=== PATIENT | female | born 1940 | race Caucasian/White ===

== ENCOUNTER 2017-03-28 03:02 | Inpatient (IN) | payer MEDICARE ==
[2017-03-28] MEDS ORDERED: Ondansetron INJ* 2 MG/ML VIAL IV ONE (03:04)
[2017-03-28] MEDS ORDERED: NS 0.9% 1000 ML* 1,000 ML IV ONE (03:04)
--- NOTE | 2017-03-28 03:35 | ED ---
I, Michael,Sameera, scribed for Richard Ramírez MD on 03/28/17 at 0311 . GI/ HPI - HPI Summary HPI Summary: This 76 y/o female presents to ED via ambulance for acute n/v and dizziness since 0130 AM tonight. Pt is noted to be actively vomiting at time of initial evaluation. Coffee ground emesis noted. Negative melena or abd pain. Pt denies any prior history of bloody vomit. Pt is currently on warfarin. PMHx includes s/ p pacemaker placement, cardiac valvular dz s/p valve replacement, and HLD. - History of Current Complaint Time Seen by Provider: 03/28/17 03:03 Stated Complaint: VOMITING/DIZZINESS Hx Obtained From: Patient, Medical Records Onset/Duration: Started Hours Ago, Atraumatic, Still Present Timing: Constant Location of Pain: None Associated Signs and Symptoms: Positive: Dizziness, Nausea, Vomiting Aggravating Factor(s): Nothing Alleviating Factor(s): Nothing - Additional Pertinent History Primary Care Physician: [id number] - Allergy/Home Medications Allergies/Adverse Reactions: Allergies Allergy/AdvReac Type Severity Reaction Status Date / Time Sulfa Drugs Allergy Intermediate Rash Verified 08/04/15 12:43 Penicillins Allergy Unknown Unknown Verified 08/04/15 12:43 Reaction Details Erythromycin AdvReac Intermediate Rectal Verified 08/04/15 12:43 Irritation Home Medications: Home Medications Furosemide [Lasix] 20 mg PO DAILY 03/28/17 [History Confirmed 03/28/17] PMH/Surg Hx/FS Hx/Imm Hx Endocrine/Hematology History: Denies: Hx Diabetes, Hx Thyroid Disease Cardiovascular History: Reports: Hx Coronary Artery Disease, Hx Hypercholesterolemia - HLD, Hx Pacemaker/ICD - PACER INSERTION 07-27-15, Hx Valvular Heart Disease - MITRAL & AORTIC VALVE, Other Cardiovascular Problems/ Disorders - CAD, VALVULAR HEART DISEASE Denies: Hx Congestive Heart Failure, Hx Hypertension, Hx Peripheral Vascular Disease Respiratory History: Reports: Hx Asthma - DAILY MEDS, Hx Chronic Bronchitis History: Reports: Other Problems/Disorders - CYSTOSCOPY Musculoskeletal History: Denies: Hx Arthritis, Hx Osteoporosis Sensory History: Reports: Hx Cataracts, Hx Contacts or Glasses Denies: Hx Hearing Aid Opthamlomology History: Reports: Hx Cataracts, Hx Contacts or Glasses Neurological History: Reports: Other Neuro Impairments/Disorders - neuropathy Denies: Hx Headaches, Hx Transient Ischemic Attacks (TIA) Psychiatric History: Denies: Hx Anxiety, Hx Depression, Hx Panic Disorder - Cancer History Cancer Type, Location and Year: LEFT BREAST CA - LUMPECTOMY - Surgical History Surgery Procedure, Year, and Place: MITRAL AND AORTIC valve replacement/single bypass;. *MITRAL VALVE MOSAIC PORCINE CONDITIONAL AT 3T (CODI UNDER 4.0W/KG ; 2500 GAUSS/CM OR LESS) AORTIC VALVE DUVALL MAGNA MITRAL EASE PERICARDIAL 1.5T ONLY (SPATIAL GRADIENT 720 GAUSS/CM)*. L breast lumpectomy 2011, tonsilectomy, CARDIAC CATH 07/2013, CYSTOSCOPY, CATARACT SX; Infectious Disease History: Denies: History Other Infectious Disease - Social History Alcohol Use: None Alcohol Amount: ONCE A WEEK Hx Substance Use: No Substance Use Type: Reports: None Hx Tobacco Use: No Smoking Status (MU): Never Smoked Tobacco Review of Systems Negative: Fever Positive: Vomiting, Nausea. Negative: Abdominal Pain All Other Systems Reviewed And Are Negative: Yes Physical Exam Triage Information Reviewed: Yes Vital Signs Reviewed: Yes Appearance: Positive: No Pain Distress, Ill-Appearing Skin: Positive: Warm Head/Face: Positive: Normal Head/Face Inspection Eyes: Positive: ARSENIO ENT: Positive: Hearing grossly normal Neck: Positive: Supple Respiratory/Lung Sounds: Positive: Clear to Auscultation, Breath Sounds Present Cardiovascular: Positive: RRR Abdomen Description: Positive: Soft, Other: - mild epigastric tenderness Bowel Sounds: Positive: Present Musculoskeletal: Positive: Strength/ROM Intact Neurological: Positive: Sensory/Motor Intact, Alert, Oriented to Person Place, Time Psychiatric: Positive: Normal, Affect/Mood Appropriate Diagnostics - Laboratory Result Diagrams: 03/28/17 04:15 03/28/17 04:15 Lab Statement: Any lab studies that have been ordered have been reviewed, and results considered in the medical decision making process. - Radiology CXR Radiology Interpretation Completed By: ED Physician Re-Evaluation - Re-Evaluation First Eval Re-Evaluation Time: 05:02 Comment: in room to discuss plan of care. case d/w hospitalist JAQUELINE Course/Dx - Course Assessment/Plan: This 76 y/o female presents to ED for acute onset of coffee ground emesis since tonight at 0130 AM. Pt is currently on warfarin. Bloodwork is noted with depressed Hgb level of 9.1 and elevated CRP of 24.80. INR of 5.81 is noted. house calls nurse practitioner hospitalist Dr. Betancourt is consulted, and pt is accepted for admission. - Diagnoses Provider Diagnoses: GI bleed, Hyperprothrombinemia - Physician Notifications Discussed Care Of Patient With: Jassi Betancourt Time Discussed With Above Provider: 05:04 Instructed by Provider To: Admit As Inpatient - Critical Care Time Critical Care Time: 30-74 min Discharge - Discharge Plan Condition: Fair Disposition: ADMITTED TO [facility] Referrals: Keyona Figueroa MD [Primary Care Provider] - The documentation as recorded by the Michael liang Soohyun accurately reflects the service I personally performed and the decisions made by me, Richard Ramírez MD.
[2017-03-28 04:30] LABS: Hematocrit 27 % (35-47); Hemoglobin 9.1 g/dl (12.0-16.0); Mean Corpuscular HGB Conc 34 g/dl (31-36); Mean Corpuscular Hemoglobin 31 pg (27-31); Mean Corpuscular Volume 93 fL (80-97); Mean Platelet Volume 8 um3 (7.4-10.4); Red Blood Count 2.93 10^6/ul (4.0-5.4); Red Cell Distribution Width 14 % (10.5-15); White Blood Count 8.2 10^3/ul (3.5-10.8)
[2017-03-28 04:43] LABS: Albumin 3.2 g/dL (3.2-5.2); BUN/Creatinine Ratio 52.4 (8-20); C Reactive Protein 24.8 mg/L (< 5.00); Calcium 8.7 mg/dL (8.6-10.3); EGFR African American 65.4 (>60); EGFR Non-African American 50.8 (>60); Globulin 2.7 g/dL (2-4); Potassium 4.6 mmol/L (3.5-5.0); Total Bilirubin 0.4 mg/dL (0.2-1.0); Total Protein 5.9 g/dL (6.4-8.9)
[2017-03-28] MEDS ORDERED: Pantoprazole IV* 40 MG IV ONE (05:06)
[2017-03-28] MEDS ORDERED: Albuterol 2.5 MG/3 ML NEB.SOL* (0.083%) INH PRN (05:09)
[2017-03-28] MEDS ORDERED: Melatonin (NF) 3 MG TAB PO PRN (05:09)
--- NOTE | 2017-03-28 05:22 | HP ---
H&P (Free Text) History and Physical: PCP: Say Figueroa MD Date/Time of Evaluation: 03/28/2017 0505 CC: N/V HPI: Mrs Melgar is a 76YO female HX bio-prosthetic AVR & MVR, CAD, breast CA & chronic systolic HF who was in her usual state of health 03/27 noting only some mild nausea before bed. She then awoke ~0200 with worse nausea and vomited black material. She then became diaphoretic and "nearly passed out", but denies chest/abdominal pain, SOB, palpitations, F/C, or other issues. She noted some constipation a week ago that has since resolved, but not black/tarry stools. She takes warfarin for a history of AFIB and aspirin for CAD. She denies taking OTC pain medications such as ibuprofen/motrin or naproxen/aleve. PMedHx CAD AFIB bio-prosthetic AVR & MVR HTN HLD chronic systolic HF EF 45-50% HX breast CA asthma peripheral neuropathy Ambulatory Orders Multiple Vitamins W/ Minerals [Multi For Her] 300 mg PO DAILY 08/02/13 Aspirin EC Low Dose* [Ecotrin EC Low Dose 81 MG*] 81 mg PO DAILY 08/26/13 Atorvastatin* [Lipitor*] 10 mg PO DAILY 05/13/14 Calcium Carbonate-Vitamin D [Calcium 600+D] 1 tab PO DAILY 05/13/14 Cholecalciferol TAB* [Vitamin D TAB*] 2,000 unit PO DAILY 05/13/14 Lisinopril TAB* [Prinivil TAB*] 5 mg PO DAILY 05/13/14 Metoprolol Succinate [Toprol Xl] 25 mg PO TID 05/13/14 Ascorbic Acid TAB* [Vitamin C TAB*] 500 mg PO DAILY 07/05/14 Nitroglycerin TAB 0.4 MG* 0.4 mg SL Q5M PRN 07/05/14 Warfarin TAB(*) [Coumadin TAB(*)] 4 mg PO DAILY 07/05/14 Albuterol HFA INHALER* [Ventolin HFA Inhaler*] 2 puff INH Q4HR 11/08/14 Flovent Hfa 2 puff INH BID 11/08/14 Ipratropium Fenton (Nasal) [Ipratropium Fenton] 0.03 % NA DAILY 11/08/14 Furosemide [Lasix] 20 mg PO DAILY 03/28/17 Allergies Sulfa Drugs Allergy (Intermediate, Verified 08/04/15 12:43) Rash Penicillins Allergy (Unknown, Verified 08/04/15 12:43) Unknown Reaction Details Erythromycin Adverse Reaction (Intermediate, Verified 08/04/15 12:43) Rectal Irritation SocHx: denies tobacco, alcohol, & recreational drugs; , lives alone, 2 daughters; retired from secretarial work for [employer]; full code status FamHx: positive for HTN, HLD ROS: as above, otherwise reviewed and all were negative Constitutional: NAD, normally developed, slightly overweight elderly white female vitals: Vital Signs Temp 35.9 C 03/28/17 03:39 Pulse 94 03/28/17 04:46 Resp 14 03/28/17 04:46 BP 75/42 03/28/17 04:47 Pulse Ox 94 03/28/17 04:46 Intake & Output 03/27/17 03/27/17 03/28/17 11:59 23:59 11:59 Weight 72.575 kg Other: Estimated Stool Amount Medium HEENM: atraumatic; sclera/conjunctiva: non-icteric/clear; hearing: clinically intact; oropharynx: clear, mucosa tacky Neck: soft tissue: non-tender; thyroid: normal Pulmonary: clear to auscultation bilaterally, good aeration, no accessory muscle use CV: RR/RR, normal S1S2, no carotid bruit, no jugular venous distention, 2+ B DP/ PT, no edema Abdominal: soft, non-distended, non-tender, no rebound/guarding/rigidity, normoactive bowel sounds, no hepatosplenomegaly or masses, no costovertebral angle tenderness Musculoskeletal: general: grossly intact; gait: stable Integumental: pale, cool Psychiatric orientation: AA&O to PPS affect: calm mood: pleasant eye contact: good content: mostly reliable, but lacking in details (denies HX AFIB, but was noted in cardiology consult from 2014) responses: timely insight: good Testing: Lab Results 03/28/17 03/28/17 03/28/17 Range/Units 04:15 04:15 04:15 WBC 8.2 (3.5-10.8) 10^3/ul RBC 2.93 L (4.0-5.4) 10^6/ul Hgb 9.1 L (12.0-16.0) g/dl Hct 27 L (35-47) % MCV 93 (80-97) fL MCH 31 (27-31) pg MCHC 34 (31-36) g/dl RDW 14 (10.5-15) % Plt Count 150 (150-450) 10^3/ul MPV 8 (7.4-10.4) um3 Neut % (Auto) 77.5 (38-83) % Lymph % (Auto) 14.3 L (25-47) % [place] % (Auto) 6.9 (1-9) % Eos % (Auto) 0.9 (0-6) % Baso % (Auto) 0.4 (0-2) % Absolute Neuts (auto) 6.3 (1.5-7.7) 10^3/ul Absolute Lymphs (auto) 1.2 (1.0-4.8) 10^3/ul Absolute Monos (auto) 0.6 (0-0.8) 10^3/ul Absolute Eos (auto) 0.1 (0-0.6) 10^3/ul Absolute Basos (auto) 0 (0-0.2) 10^3/ul Absolute Nucleated RBC 0 10^3/ul Nucleated RBC % 0 INR (Anticoag Therapy) 5.81 H* (0.89-1.11) Sodium 137 (133-145) mmol/L Potassium 4.6 (3.5-5.0) mmol/L Chloride 106 (101-111) mmol/L Carbon Dioxide 28 (22-32) mmol/L Anion Gap 3 (2-11) mmol/L BUN 55 H (6-24) mg/dL Creatinine 1.05 H (0.51-0.95) mg/dL Est GFR ( Amer) 65.4 (>60) Est GFR (Non-Af Amer) 50.8 (>60) BUN/Creatinine Ratio 52.4 H (8-20) Glucose 162 H (70-100) mg/dL Lactic Acid (0.5-2.0) mmol/L Calcium 8.7 (8.6-10.3) mg/dL Magnesium 2.0 (1.9-2.7) mg/dL Total Bilirubin 0.40 (0.2-1.0) mg/dL AST 18 (13-39) U/L ALT 13 (7-52) U/L Alkaline Phosphatase 76 (34-104) U/L C-Reactive Protein 24.80 H (< 5.00) mg/L Total Protein 5.9 L (6.4-8.9) g/dL Albumin 3.2 (3.2-5.2) g/dL Globulin 2.7 (2-4) g/dL Albumin/Globulin Ratio 1.2 (1-3) Lipase 28 (11.0-82.0) U/L Blood Type Antibody Screen Crossmatch 03/28/17 03/28/17 Range/Units 04:15 04:15 WBC (3.5-10.8) 10^3/ul RBC (4.0-5.4) 10^6/ul Hgb (12.0-16.0) g/dl Hct (35-47) % MCV (80-97) fL MCH (27-31) pg MCHC (31-36) g/dl RDW (10.5-15) % Plt Count (150-450) 10^3/ul MPV (7.4-10.4) um3 Neut % (Auto) (38-83) % Lymph % (Auto) (25-47) % [place] % (Auto) (1-9) % Eos % (Auto) (0-6) % Baso % (Auto) (0-2) % Absolute Neuts (auto) (1.5-7.7) 10^3/ul Absolute Lymphs (auto) (1.0-4.8) 10^3/ul Absolute Monos (auto) (0-0.8) 10^3/ul Absolute Eos (auto) (0-0.6) 10^3/ul Absolute Basos (auto) (0-0.2) 10^3/ul Absolute Nucleated RBC 10^3/ul Nucleated RBC % INR (Anticoag Therapy) (0.89-1.11) Sodium (133-145) mmol/L Potassium (3.5-5.0) mmol/L Chloride (101-111) mmol/L Carbon Dioxide (22-32) mmol/L Anion Gap (2-11) mmol/L BUN (6-24) mg/dL Creatinine (0.51-0.95) mg/dL Est GFR ( Amer) (>60) Est GFR (Non-Af Amer) (>60) BUN/Creatinine Ratio (8-20) Glucose (70-100) mg/dL Lactic Acid 1.7 (0.5-2.0) mmol/L Calcium (8.6-10.3) mg/dL Magnesium (1.9-2.7) mg/dL Total Bilirubin (0.2-1.0) mg/dL AST (13-39) U/L ALT (7-52) U/L Alkaline Phosphatase (34-104) U/L C-Reactive Protein (< 5.00) mg/L Total Protein (6.4-8.9) g/dL Albumin (3.2-5.2) g/dL Globulin (2-4) g/dL Albumin/Globulin Ratio (1-3) Lipase (11.0-82.0) U/L Blood Type O Negative Antibody Screen Pending Crossmatch See Detail ECG, personally reviewed: ventricularly paced rhythm rate 96 CXR, personally reviewed: no acute process ECHO (06/2015): Conclusions: The left ventricular chamber size is normal. Mild concentric left ventricular hypertrophy is observed. The estimated ejection fraction is low normal/mildly reduced at 45-50% appears closer to 50%. The right ventricular chamber size and systolic function are within normal limits. The bio-prosthetic aortic valve appears to be functioning normally. The bioprosthetic mitral valve appears to be functioning normally. Impression: 76F presenting with upper GI hemorrhage & warfarin toxicity DIAGNOSIS & PLAN Primary upper GI hemorrhage on warfarin/aspirin : NPO : ICU monitoring : 5mg vitamin K PO & 4units FFP for warfarin reversal : pantoprazole bolus/GTT : case reviewed w/ S MD [facility] who will arrange consultation this AM : IVFs : type & screen : supplemental oxygen : GI consult in AM : hold aspirin & warfarin : supportive care warfarin toxicity : 5mg vitamin K PO & 4units FFP : hold & trend INR daily, evaluate dosage & restart once therapeutic & bleeding resolved Secondary CAD : hold aspirin 2nd GI bleeding bio-prosthetic AVR & MVR : no acute issues HTN : hold lisinopril & metoprolol given hypotension in ED, monitor HLD : continue atorvastatin chronic systolic HF : continue furosemide PO : EF 45-50% : daily weights : strict I&Os : high likelihood of exacerbation 2nd IVF & possible transfusion needs HX breast CA : no evidence of disease asthma : albuterol nebs PRN : mometasone/formoterol Admission Rational: DVTp: SCDs, no anticoagulation 2nd acute hemorrhage Code Status: full HCP: daughters
[2017-03-28] MEDS ORDERED: Phytonadione Oral Solution* 5 MG/25 ML UDC PO ONE (05:49)
[2017-03-28] MEDS: Pantoprazole IV* 80 MG in NS 0.9% 250 ML* 250 ML IVPB SCH ×2 (06:49→16:01)
[2017-03-28] MEDS: Mometasone/Formoter 200/5 MDI INH SCH ×2 (08:26→20:03)
[2017-03-28] MEDS: Atorvastatin* 10 MG TAB PO SCH (08:38)
[2017-03-28] MEDS ORDERED: Furosemide TAB* 20 MG PO SCH (09:00)
--- NOTE | 2017-03-28 09:38 | RAD ---
Indication: Vomiting. 2 views of the chest including dual energy PA views demonstrates no mediastinal shift. Heart is of normal size and configuration. Pacemaker leads are in place. The patient is status post transsternal thoracotomy. No pleural fluid, pneumonia or pneumothorax is noted. When compared to previous exam of February 19, 2016 no significant change is noted. IMPRESSION: No active cardiopulmonary disease is noted.
[2017-03-28] MEDS ORDERED: Midazolam* 1 MG/ML 5 ML VIAL (5 MG) ONE (14:23)
[2017-03-28] MEDS ORDERED: Meperidine SYRINGE* 50 MG/ML ONE (14:23)
[2017-03-28 15:21] LABS: Hematocrit 27 % (35-47); Hemoglobin 9.1 g/dl (12.0-16.0); Mean Corpuscular HGB Conc 33 g/dl (31-36); Mean Corpuscular Hemoglobin 31 pg (27-31); Mean Corpuscular Volume 94 fL (80-97); Mean Platelet Volume 9 um3 (7.4-10.4); Red Blood Count 2.92 10^6/ul (4.0-5.4); Red Cell Distribution Width 14 % (10.5-15); White Blood Count 5.5 10^3/ul (3.5-10.8)
[2017-03-28] MEDS: NS 0.9% 1000 ML* 1,000 ML IV SCH ×2 (16:01→23:10)
--- NOTE | 2017-03-28 16:02 | CONS ---
CC: Dr. Figueroa* CONSULTATION REPORT: DATE OF CONSULT: 03/28/17 REQUESTING PHYSICIAN: Dr. Huitron. INDICATION: Hematemesis. NARRATIVE: Ms. Melgar is a pleasant 76-year-old female with a history of aortic valve and mitral valve replacement, coronary artery disease, breast cancer, congestive heart failure, and asthma, who presents after feeling nauseated around 2 a.m. this morning, and then vomited very dark coffee ground- like material. She states that she had 2 further episodes of that after. She then came to the emergency room. She has had no further vomiting since coming to the emergency room. She states that her stools have not been black; however , she admits that she really does not look at them. She denies any abdominal pain. She does take an aspirin every day, but no other nonsteroidals. She has never had GI bleeding in the past. She is feeling better now, but was feeling weak beforehand. PAST MEDICAL HISTORY: Please see the HPI. MEDICATIONS: Include: 1. Aspirin. 2. Lipitor. 3. Prinivil. 4. Toprol. 5. Coumadin. 6. Flovent. 7. Lasix. ALLERGIES: To SULFA, PENICILLIN, and ERYTHROMYCIN. FAMILY HISTORY: Hypertension, hyperlipidemia. SOCIAL HISTORY: No tobacco. REVIEW OF SYSTEMS: A 12-systems were reviewed, other than that mentioned in the HPI, are unremarkable. The patient did receive 2 units of FFP and vitamin K already. PHYSICAL EXAM: Temperature is 98.1, blood pressure is 114/53, pulse is 89. General: Well-appearing female, in no apparent distress, lying flat in bed, alert, oriented, pleasant, fluent. HEENT: Mucous membranes are moist without lesions, ulcers, or exudate. Neck is supple. Trachea is midline. Head is normocephalic, atraumatic. No scleral icterus. Conjunctivae are pale. Heart: Regular rate and rhythm. She has both aortic and mitral valve murmurs. Lungs are clear to auscultation. Abdomen: Positive bowel sounds, soft, nontender, nondistended. No hepatosplenomegaly, masses, rebound, or guarding. Skin is warm and dry. LABORATORY DATA: Of note, hemoglobin is 9.1, platelets of 150. INR is 5.81. BUN is 55 creatinine is 1.05. ASSESSMENT AND PLAN: This is a pleasant 76-year-old female with an upper gastrointestinal bleed, likely secondary to peptic ulcer disease from her aspirin, worsened by an elevated INR. She has received FFP and vitamin K. There is an INR pending right now. She is on a proton pump inhibitor drip. I will make arrangements for an EGD today. [id number]/[facility] #: [id number]
[2017-03-28 18:26] LABS: Urine Bacteria Absent (Absent); Urine Bilirubin Negative (Negative); Urine Glucose Negative (Negative); Urine Nitrite Negative (Negative)
--- NOTE | 2017-03-28 18:51 | PN ---
Subjective Date of Service: 03/28/17 Interval History: Feels much better. No more nausea. She never had pain. Ate well today. No new c/o. Objective Active Medications: Acetaminophen (Tylenol Tab*) 650 mg PO Q6H PRN PRN Reason: FEVER/PAIN Albuterol (Ventolin 2.5 Mg/3 Ml Neb.Jigna*) 2.5 mg INH Q2H PRN PRN Reason: SOB/WHEEZING Atorvastatin Calcium (Lipitor*) 10 mg PO DAILY [facility] Last Admin: 03/28/17 08:38 Dose: 10 mg Furosemide (Lasix Tab*) 20 mg PO DAILY [facility] Last Admin: 03/28/17 08:38 Dose: 20 mg Pantoprazole Sodium 80 mg/ (Sodium Chloride) 250 mls @ 25 mls/hr IVPB Q10H [facility] Last Admin: 03/28/17 16:01 Dose: 25 mls/hr Sodium Chloride (Ns 0.9% 1000 Ml*) 1,000 mls @ 125 mls/hr IV PER RATE [facility] Last Admin: 03/28/17 16:01 Dose: 125 mls/hr Melatonin (Melatonin (Nf)) 3 mg PO BEDTIME PRN; Protocol PRN Reason: Sleep Mometasone Furoate/Formoterol Fumar (Dulera 200/5 Mdi*) 2 puff INH BID [facility] Last Admin: 03/28/17 08:26 Dose: 2 puff Vital Signs 03/28/17 03/28/17 03/28/17 05:15 05:30 05:45 Temperature Pulse Rate 95 94 91 Respiratory 20 12 19 Rate Blood Pressure 74/44 77/48 84/45 (mmHg) O2 Sat by Pulse 96 96 98 Oximetry 03/28/17 03/28/17 03/28/17 06:00 06:15 06:21 Temperature 98.7 F Pulse Rate 93 95 Respiratory 12 16 Rate Blood Pressure 84/46 91/54 (mmHg) O2 Sat by Pulse 97 100 Oximetry 03/28/17 03/28/17 03/28/17 06:30 06:34 06:41 Temperature Pulse Rate 90 92 Respiratory 14 16 Rate Blood Pressure 87/68 111/38 (mmHg) O2 Sat by Pulse 98 98 Oximetry 03/28/17 03/28/17 03/28/17 06:45 06:58 06:59 Temperature 98.5 F Pulse Rate 94 89 92 Respiratory 23 20 22 Rate Blood Pressure 104/47 110/48 110/38 (mmHg) O2 Sat by Pulse 94 98 99 Oximetry 03/28/17 03/28/17 03/28/17 07:00 07:15 07:30 Temperature Pulse Rate 94 94 93 Respiratory 18 16 15 Rate Blood Pressure 124/41 112/43 107/45 (mmHg) O2 Sat by Pulse 99 88 95 Oximetry 03/28/17 03/28/17 03/28/17 07:45 08:00 08:15 Temperature 98.5 F Pulse Rate 92 93 91 Respiratory 21 15 22 Rate Blood Pressure 115/48 104/39 108/45 (mmHg) O2 Sat by Pulse 98 98 97 Oximetry 03/28/17 03/28/17 03/28/17 08:27 08:28 08:30 Temperature Pulse Rate 94 86 Respiratory 18 17 Rate Blood Pressure 97/40 (mmHg) O2 Sat by Pulse 99 99 Oximetry 03/28/17 03/28/17 03/28/17 08:45 08:48 09:00 Temperature Pulse Rate 94 91 Respiratory 20 15 19 Rate Blood Pressure 118/44 100/59 (mmHg) O2 Sat by Pulse 98 97 Oximetry 03/28/17 03/28/17 03/28/17 09:30 10:00 10:25 Temperature Pulse Rate 91 93 94 Respiratory 16 12 18 Rate Blood Pressure 102/36 107/48 106/43 (mmHg) O2 Sat by Pulse 96 99 98 Oximetry 03/28/17 03/28/17 03/28/17 11:00 11:31 12:00 Temperature 98.1 F Pulse Rate 87 88 89 Respiratory 15 23 17 Rate Blood Pressure 105/46 126/52 114/53 (mmHg) O2 Sat by Pulse 94 99 97 Oximetry 03/28/17 03/28/17 03/28/17 13:00 14:00 14:47 Temperature Pulse Rate 88 85 97 Respiratory 16 16 19 Rate Blood Pressure 117/57 121/53 132/62 (mmHg) O2 Sat by Pulse 98 96 99 Oximetry 03/28/17 03/28/17 03/28/17 14:50 14:55 15:00 Temperature Pulse Rate 102 94 90 Respiratory 16 12 13 Rate Blood Pressure 116/54 95/38 122/29 (mmHg) O2 Sat by Pulse 98 92 100 Oximetry 03/28/17 03/28/17 03/28/17 15:05 15:15 15:30 Temperature Pulse Rate 91 89 94 Respiratory 13 13 16 Rate Blood Pressure 100/39 88/34 102/56 (mmHg) O2 Sat by Pulse 95 93 97 Oximetry 03/28/17 03/28/17 03/28/17 15:45 16:00 16:06 Temperature 97.7 F Pulse Rate 104 Respiratory 20 Rate Blood Pressure 103/72 (mmHg) O2 Sat by Pulse 98 100 Oximetry 03/28/17 03/28/17 03/28/17 16:07 16:30 17:00 Temperature Pulse Rate 108 101 38 Respiratory 21 23 20 Rate Blood Pressure 113/56 110/60 (mmHg) O2 Sat by Pulse 78 93 82 Oximetry 03/28/17 03/28/17 03/28/17 17:21 18:00 18:07 Temperature Pulse Rate 95 65 32 Respiratory 18 16 19 Rate Blood Pressure 119/49 111/53 (mmHg) O2 Sat by Pulse 100 67 56 Oximetry Appearance: Alert, in a chair. In good spirits. Looks comfortable. Eyes: No Scleral Icterus Neck: NL Appearance and Movements; NL JVP, No Thyroid Enlargement, Masses Respiratory: Symmetrical Chest Expansion and Respiratory Effort, Clear to Auscultation, Clear to Percussion Cardiovascular: NL Sounds; No Murmurs; No JVD, RRR, No Edema, - Abdominal: NL Sounds; No Tenderness; No Distention, No Hepatosplenomegaly, - Extremities: No Edema, No Clubbing, Cyanosis, - Skin: No Rash or Ulcers, No Nodules or Sclerosis, - Neurological: Alert and Oriented x 3, NL Sensation Result Diagrams: 03/28/17 15:10 03/28/17 04:15 Microbiology and Other Data: Microbiology 03/28/17 07:03 Nasal Screen MRSA (PCR)(DEEPA) - Final Nasal Mrsa Negative Assess/Plan/Problems-Billing Assessment: - Patient Problems (1) Peptic disease Current Visit: Yes Status: Acute Code(s): K31.9 - DISEASE OF STOMACH AND DUODENUM, UNSPECIFIED SNOMED Code(s): 330173406 Comment: 3 gastric ulcers seen, look benign, not bleeding. Bx for H. pylori obtained. Continue PPI drip. Hct 27 7/4. CBC 7/5. Resume ASA in 1-2 weeks. (2) Afib Current Visit: No Status: Acute Code(s): I48.91 - UNSPECIFIED ATRIAL FIBRILLATION SNOMED Code(s): 58916682 Comment: INR down to 2.47 after FFP. INR 7/5. Resume warfarin in 1-2 weeks. (3) CAD (coronary artery disease) Current Visit: No Status: Acute Code(s): I25.10 - ATHSCL HEART DISEASE OF [place] CORONARY ARTERY W/O ANG PCTRS SNOMED Code(s): 91137800 Comment: Remote CABG, double valve replacement. LVEF 45-50%. - Continue atorvastatin. (4) HTN (hypertension) Current Visit: No Status: Acute Code(s): I10 - ESSENTIAL (PRIMARY) HYPERTENSION SNOMED Code(s): 67158944 Comment: Hold Lisinopril.
[2017-03-28] MEDS: Acetaminophen TAB* 325 MG PO PRN (20:15)
--- NOTE | 2017-03-29 00:13 | PRO ---
CC: Dr. iFgueroa* DATE OF PROCEDURE: 03/28/17 - ROOM #ICU-02 PROCEDURE: EGD. INDICATION: Hematemesis. REFERRING PHYSICIAN: Dr. Figueroa. MEDICATIONS GIVEN: 25 mg IV Demerol, 3 mg IV Versed. DESCRIPTION OF PROCEDURE: After the EGD procedure including the risks, benefits , and alternatives not limited to perforation, surgery, and/or were explained to Ms. Melgar, written consent was then obtained, IV medication was given, and a bite block was placed between the teeth. An Olympus gastroscope was then inserted into the patient's mouth, advanced down the esophagus, into the stomach, into the distal duodenum. In the esophagus at the GE junction, the Z-line was intact. No erosive esophagitis, stricture, or ring was seen. Scope was advanced through a widely patent GE junction into the body of the stomach. Retroflex view was unremarkable. Forward view did reveal three medium sized gastric ulcers. No bleeding was seen. A biopsy was taken for H. pylori. The scope was advanced through a widely patent pylorus, into the duodenal bulb, into the distal duodenum, both of which were unremarkable. The scope was withdrawn from the patient. She tolerated the procedure well, was returned to the care of the ICU staff. IMPRESSION: 1. Complete upper endoscopy into the distal duodenum with biopsies. 2. Three clean based gastric ulcers, status post biopsy for H. pylori. 3. Likely related to her aspirin and her high INR. 4. I would hold her aspirin and Coumadin for 1 week and she will need a repeat EGD in approximately 8 weeks for now to confirm healing of the ulcer. She will need go home on a b.i.d. PPI until her scope. [id number]/[facility] #: [id number] [facility]
[2017-03-29] MEDS: Pantoprazole IV* 80 MG in NS 0.9% 250 ML* 250 ML IVPB SCH ×2 (01:43→14:49)
[2017-03-29 05:15] LABS: Hematocrit 26 % (35-47); Hemoglobin 8.7 g/dl (12.0-16.0); Mean Corpuscular HGB Conc 33 g/dl (31-36); Mean Corpuscular Hemoglobin 32 pg (27-31); Mean Corpuscular Volume 95 fL (80-97); Mean Platelet Volume 9 um3 (7.4-10.4); Red Blood Count 2.74 10^6/ul (4.0-5.4); Red Cell Distribution Width 14 % (10.5-15); White Blood Count 5.7 10^3/ul (3.5-10.8)
[2017-03-29 05:27] LABS: BUN/Creatinine Ratio 38.9 (8-20); Calcium 7.9 mg/dL (8.6-10.3); EGFR Non-African American 46.7 (>60); Potassium 3.8 mmol/L (3.5-5.0)
--- NOTE | 2017-03-29 07:19 | PN ---
Subjective Date of Service: 03/29/17 Interval History: No nausea, abd pain. No BM yet. No new c/o. Objective Active Medications: Acetaminophen (Tylenol Tab*) 650 mg PO Q6H PRN PRN Reason: FEVER/PAIN Last Admin: 03/28/17 20:15 Dose: 650 mg Albuterol (Ventolin 2.5 Mg/3 Ml Neb.Jigna*) 2.5 mg INH Q2H PRN PRN Reason: SOB/WHEEZING Atorvastatin Calcium (Lipitor*) 10 mg PO DAILY [facility] Last Admin: 03/28/17 08:38 Dose: 10 mg Pantoprazole Sodium 80 mg/ (Sodium Chloride) 250 mls @ 25 mls/hr IVPB Q10H [facility] Last Admin: 03/29/17 01:43 Dose: 25 mls/hr Mometasone Furoate/Formoterol Fumar (Dulera 200/5 Mdi*) 2 puff INH BID [facility] Last Admin: 03/28/17 20:03 Dose: 2 puff Vital Signs 03/28/17 03/28/17 03/28/17 07:30 07:45 08:00 Temperature 98.5 F Pulse Rate 93 92 93 Respiratory 15 21 15 Rate Blood Pressure 107/45 115/48 104/39 (mmHg) O2 Sat by Pulse 95 98 98 Oximetry 03/28/17 03/28/17 03/28/17 08:15 08:27 08:28 Temperature Pulse Rate 91 94 86 Respiratory 22 18 17 Rate Blood Pressure 108/45 (mmHg) O2 Sat by Pulse 97 99 99 Oximetry 03/28/17 03/28/17 03/28/17 08:30 08:45 08:48 Temperature Pulse Rate 94 Respiratory 20 15 Rate Blood Pressure 97/40 118/44 (mmHg) O2 Sat by Pulse 98 Oximetry 03/28/17 03/28/17 03/28/17 09:00 09:30 10:00 Temperature Pulse Rate 91 91 93 Respiratory 19 16 12 Rate Blood Pressure 100/59 102/36 107/48 (mmHg) O2 Sat by Pulse 97 96 99 Oximetry 03/28/17 03/28/17 03/28/17 10:25 11:00 11:31 Temperature Pulse Rate 94 87 88 Respiratory 18 15 23 Rate Blood Pressure 106/43 105/46 126/52 (mmHg) O2 Sat by Pulse 98 94 99 Oximetry 03/28/17 03/28/17 03/28/17 12:00 13:00 14:00 Temperature 98.1 F Pulse Rate 89 88 85 Respiratory 17 16 16 Rate Blood Pressure 114/53 117/57 121/53 (mmHg) O2 Sat by Pulse 97 98 96 Oximetry 03/28/17 03/28/17 03/28/17 14:47 14:50 14:55 Temperature Pulse Rate 97 102 94 Respiratory 19 16 12 Rate Blood Pressure 132/62 116/54 95/38 (mmHg) O2 Sat by Pulse 99 98 92 Oximetry 03/28/17 03/28/17 03/28/17 15:00 15:05 15:15 Temperature Pulse Rate 90 91 89 Respiratory 13 13 13 Rate Blood Pressure 122/29 100/39 88/34 (mmHg) O2 Sat by Pulse 100 95 93 Oximetry 03/28/17 03/28/17 03/28/17 15:30 15:45 16:00 Temperature 97.7 F Pulse Rate 94 104 Respiratory 16 20 Rate Blood Pressure 102/56 103/72 (mmHg) O2 Sat by Pulse 97 98 Oximetry 03/28/17 03/28/17 03/28/17 16:06 16:07 16:30 Temperature Pulse Rate 108 101 Respiratory 21 23 Rate Blood Pressure 113/56 110/60 (mmHg) O2 Sat by Pulse 100 78 93 Oximetry 03/28/17 03/28/17 03/28/17 17:00 17:21 18:00 Temperature Pulse Rate 38 95 65 Respiratory 20 18 16 Rate Blood Pressure 119/49 (mmHg) O2 Sat by Pulse 82 100 67 Oximetry 03/28/17 03/28/17 03/28/17 18:07 19:00 19:15 Temperature Pulse Rate 32 95 95 Respiratory 19 14 13 Rate Blood Pressure 111/53 85/38 90/36 (mmHg) O2 Sat by Pulse 56 96 96 Oximetry 03/28/17 03/28/17 03/28/17 19:55 20:00 21:00 Temperature 97.9 F Pulse Rate 94 94 Respiratory 13 19 Rate Blood Pressure 98/36 83/37 (mmHg) O2 Sat by Pulse 99 96 Oximetry 03/28/17 03/28/17 03/28/17 21:01 21:15 22:00 Temperature Pulse Rate 94 95 92 Respiratory 20 19 14 Rate Blood Pressure 76/36 87/39 78/40 (mmHg) O2 Sat by Pulse 96 97 96 Oximetry 03/28/17 03/28/17 03/28/17 22:06 23:00 23:11 Temperature Pulse Rate 95 91 90 Respiratory 20 25 13 Rate Blood Pressure 97/47 74/38 94/45 (mmHg) O2 Sat by Pulse 92 95 96 Oximetry 03/28/17 03/28/17 03/29/17 23:20 23:30 00:00 Temperature 97.0 F Pulse Rate 87 85 Respiratory 12 11 Rate Blood Pressure (mmHg) O2 Sat by Pulse 95 95 Oximetry 03/29/17 03/29/17 03/29/17 00:01 00:05 01:00 Temperature Pulse Rate 86 85 83 Respiratory 11 12 11 Rate Blood Pressure 78/39 104/43 104/44 (mmHg) O2 Sat by Pulse 92 95 96 Oximetry 03/29/17 03/29/17 03/29/17 02:00 02:03 03:00 Temperature Pulse Rate 86 85 79 Respiratory 18 16 20 Rate Blood Pressure 125/54 116/50 (mmHg) O2 Sat by Pulse 100 98 97 Oximetry 03/29/17 03/29/17 03/29/17 03:49 04:00 05:00 Temperature 97.1 F Pulse Rate 83 87 Respiratory 12 15 Rate Blood Pressure 104/42 117/52 (mmHg) O2 Sat by Pulse 93 99 Oximetry 03/29/17 06:00 Temperature Pulse Rate 82 Respiratory 12 Rate Blood Pressure 101/43 (mmHg) O2 Sat by Pulse 97 Oximetry Oxygen Devices in Use Now: None Appearance: Alert, sl up in ICU bed. In good spirits. Looks comfortable. Eyes: No Scleral Icterus Neck: NL Appearance and Movements; NL JVP, No Thyroid Enlargement, Masses Respiratory: Symmetrical Chest Expansion and Respiratory Effort, Clear to Auscultation, Clear to Percussion Cardiovascular: RRR, No Edema, - - 1/6 systolic murmur L > R Extremities: No Edema, No Clubbing, Cyanosis Skin: No Rash or Ulcers, No Nodules or Sclerosis Neurological: Alert and Oriented x 3, NL Sensation Result Diagrams: 03/30/17 04:45 03/30/17 04:44 Microbiology and Other Data: Microbiology 03/28/17 07:03 Nasal Screen MRSA (PCR)(DEEPA) - Final Nasal Mrsa Negative Assess/Plan/Problems-Billing Assessment: - Patient Problems (1) Peptic disease Current Visit: Yes Status: Acute Code(s): K31.9 - DISEASE OF STOMACH AND DUODENUM, UNSPECIFIED SNOMED Code(s): 442606626 Comment: 3 gastric ulcers seen, look benign, not bleeding. Bx for H. pylori obtained. Continue PPI drip. Hct 25 03/29. CBC /. Resume ASA in 1-2 weeks. (2) Afib Current Visit: No Status: Acute Code(s): I48.91 - UNSPECIFIED ATRIAL FIBRILLATION SNOMED Code(s): 89682150 Comment: INR down to 2.47 after FFP. Resume warfarin in 1-2 weeks. (3) CAD (coronary artery disease) Current Visit: No Status: Acute Code(s): I25.10 - ATHSCL HEART DISEASE OF [place] CORONARY ARTERY W/O ANG PCTRS SNOMED Code(s): 03097552 Comment: Remote CABG, double valve replacement. LVEF 45-50%. - Continue atorvastatin. Hold furosemide 1 day (03/29) as creat sl higher 03/29. (4) HTN (hypertension) Current Visit: No Status: Acute Code(s): I10 - ESSENTIAL (PRIMARY) HYPERTENSION SNOMED Code(s): 07386413 Comment: Hold Lisinopril.
[2017-03-29] MEDS ORDERED: Potassium Chlor TAB* 10 MEQ TAB.ER PO ONE (08:00)
[2017-03-29] MEDS: Atorvastatin* 10 MG TAB PO SCH (08:22)
[2017-03-29] MEDS: Mometasone/Formoter 200/5 MDI INH SCH ×2 (11:46→19:58)
[2017-03-29] MEDS: Omeprazole CAP* 20 MG PO SCH (17:47)
[2017-03-30] MEDS: Acetaminophen TAB* 325 MG PO PRN (00:56)
[2017-03-30 05:11] LABS: Hematocrit 25 % (35-47); Hemoglobin 8.2 g/dl (12.0-16.0); Mean Corpuscular HGB Conc 33 g/dl (31-36); Mean Corpuscular Hemoglobin 31 pg (27-31); Mean Corpuscular Volume 94 fL (80-97); Mean Platelet Volume 9 um3 (7.4-10.4); Red Blood Count 2.61 10^6/ul (4.0-5.4); Red Cell Distribution Width 14 % (10.5-15); White Blood Count 5.1 10^3/ul (3.5-10.8)
[2017-03-30 05:13] LABS: Comments Flag Yes
[2017-03-30 05:24] LABS: BUN/Creatinine Ratio 26.7 (8-20); Calcium 8.2 mg/dL (8.6-10.3); EGFR African American 65.4 (>60); EGFR Non-African American 50.8 (>60); Potassium 4.4 mmol/L (3.5-5.0)
[2017-03-30] MEDS: Atorvastatin* 10 MG TAB PO SCH (08:04)
[2017-03-30] MEDS: Omeprazole CAP* 20 MG PO SCH (08:04)
--- NOTE | 2017-03-30 08:08 | DCNOTE ---
Subjective Date of Service: 03/30/17 Interval History: No BM since admission. Walks easily in the [place], no dizziness. No new c/o, anxious to go home. Objective Active Medications: Acetaminophen (Tylenol Tab*) 650 mg PO Q6H PRN PRN Reason: FEVER/PAIN Last Admin: 03/30/17 00:56 Dose: 650 mg Albuterol (Ventolin 2.5 Mg/3 Ml Neb.Jigna*) 2.5 mg INH Q2H PRN PRN Reason: SOB/WHEEZING Atorvastatin Calcium (Lipitor*) 10 mg PO DAILY [facility] Last Admin: 03/29/17 08:22 Dose: 10 mg Mometasone Furoate/Formoterol Fumar (Dulera 200/5 Mdi*) 2 puff INH BID [facility] Last Admin: 03/29/17 19:58 Dose: 2 puff Omeprazole (Prilosec Cap*) 20 mg PO 0730,1630 [facility] Last Admin: 03/29/17 17:47 Dose: 20 mg Vital Signs 03/29/17 03/29/17 03/29/17 08:00 11:08 15:12 Temperature 98.1 F 97.7 F Pulse Rate 84 96 93 Respiratory 12 16 16 Rate Blood Pressure 115/49 123/46 113/46 (mmHg) O2 Sat by Pulse 97 100 100 Oximetry 03/29/17 03/29/17 03/29/17 20:00 20:03 20:04 Temperature Pulse Rate 16 Respiratory 16 97 Rate Blood Pressure (mmHg) O2 Sat by Pulse 97 97 Oximetry 03/29/17 03/30/17 23:41 03:50 Temperature 98.1 F 97.8 F Pulse Rate 94 90 Respiratory 16 16 Rate Blood Pressure 100/41 94/43 (mmHg) O2 Sat by Pulse 99 99 Oximetry Oxygen Devices in Use Now: None Appearance: Alert, supine in bed. In good spirits. Looks comfortable. Eyes: No Scleral Icterus Abdominal: NL Sounds; No Tenderness; No Distention, No Hepatosplenomegaly, - Extremities: No Edema, No Clubbing, Cyanosis, - Skin: No Rash or Ulcers, No Nodules or Sclerosis, - Neurological: Alert and Oriented x 3, NL Sensation Result Diagrams: 03/30/17 04:45 03/30/17 04:44 Microbiology and Other Data: Microbiology 03/28/17 07:03 Nasal Screen MRSA (PCR)(DEEPA) - Final Nasal Mrsa Negative Assess/Plan/Problems-Billing Assessment: - Patient Problems (1) Peptic disease Current Visit: Yes Status: Acute Code(s): K31.9 - DISEASE OF STOMACH AND DUODENUM, UNSPECIFIED SNOMED Code(s): 614491740 Comment: 3 gastric ulcers seen, look benign, not bleeding. Bx for H. pylori obtained. Continue PPI drip. Hct 25 7/5. CBC 7/6. Resume ASA 04/05/17. (2) Afib Current Visit: No Status: Acute Code(s): I48.91 - UNSPECIFIED ATRIAL FIBRILLATION SNOMED Code(s): 18803471 Comment: INR down to 2.47 after FFP. Resume warfarin 04/05/17. (3) CAD (coronary artery disease) Current Visit: No Status: Acute Code(s): I25.10 - ATHSCL HEART DISEASE OF [place] CORONARY ARTERY W/O ANG PCTRS SNOMED Code(s): 50857106 Comment: Remote CABG, double valve replacement. LVEF 45-50%. - Continue atorvastatin. Resume furosemide at home. (4) HTN (hypertension) Current Visit: No Status: Acute Code(s): I10 - ESSENTIAL (PRIMARY) HYPERTENSION SNOMED Code(s): 96898370 Comment: Hold Lisinopril.
--- NOTE | 2017-03-30 08:13 | PN ---
Progress Note - Progress Note Date of Service: 03/30/17 Note: Time spent on discharge 50 minutes.
[2017-03-30 08:15] VITALS: BP 121/51
[2017-03-30] MEDS: Mometasone/Formoter 200/5 MDI INH SCH (08:24)
--- NOTE | 2017-03-30 12:46 | DS ---
CC: Dr. Figueroa; Dr. Fuentes; Dr. Goodman * DISCHARGE SUMMARY: DATE OF ADMISSION: 03/28/17 DATE OF DISCHARGE: 03/30/17 HOSPITAL COURSE: This 76-year-old woman presented with hematemesis. The history is detailed in the admission note. The patient was admitted to intensive care unit. At the time of admission, her INR was 5.81. Her hematocrit was 27. She received two units of fresh frozen plasma and two units of packed red blood cells. Following the fresh frozen plasma, her INR was 2.47. It was not repeated after that. She received no warfarin during the hospital stay. She underwent endoscopy on 03/28/17. She had three clean based gastric ulcers, biopsy was done for H. pylori. The clinical impression was that the ulcers were due to the aspirin and bleeding was related to her high INR. She was instructed to hold her aspirin and warfarin for a week. She will need to repeat the endoscopy in about 8 weeks to confirm healing of the ulcers. She will be on twice a day omeprazole until her repeat endoscopy. Her lisinopril was not given during the hospital stay nor was her metoprolol I told her to resume her metoprolol at a reduced dose of 25 mg b.i.d. She was taking 25 mg t.i.d. at home. She will continue to hold the lisinopril. Her highest systolic blood pressure through her whole hospital stay was 123 systolic. FINAL DIAGNOSES: 1. Three gastric ulcers with upper GI bleeding. 2. Atrial fibrillation. 3. Coronary artery disease. 4. Hypertension. DISCHARGE MEDICATIONS: 1. Omeprazole 20 mg b.i.d. 2. Warfarin 3 mg at h.s. to start on 04/05/17. 3. Metoprolol succinate 25 mg b.i.d. 4. Multivitamin with minerals daily. 5. Atorvastatin 10 mg daily. 6. Vitamin D 2000 units daily. 7. Calcium carbonate with vitamin D1 daily. 8. Nitroglycerin 0.4 mg every 5 minutes p.r.n. 9. Flovent two puffs b.i.d. 10. Ipratropium 0.03% nasal spray daily. 11. Furosemide 20 mg daily. [id number]/[facility] #: [id number] [facility]
== END 2017-03-30 12:15 | disposition home or self-care (01) | DRG 378 ==
LOC: ED 03:02 → ICU 05:06 → MED 03-29 09:46
PROVIDERS: ADMIT Hospitalist; ATTEND Internal Medicine
PROC: 30233K1 Transfusion of Nonautologous Frozen Plasma into Peripheral Vein, Percutaneous Approach (ICD-10-PCS; principal; 2017-03-28)
PROC: 30233N1 Transfusion of Nonautologous Red Blood Cells into Peripheral Vein, Percutaneous Approach (ICD-10-PCS; 2017-03-28)
PROC: 0DB98ZX Excision of Duodenum, Via Natural or Artificial Opening Endoscopic, Diagnostic (ICD-10-PCS; 2017-03-28)
PROC: 0DB68ZX Excision of Stomach, Via Natural or Artificial Opening Endoscopic, Diagnostic (ICD-10-PCS; 2017-03-28)
DX: K25.4 Chronic or unspecified gastric ulcer with hemorrhage (principal); I50.22 Chronic systolic (congestive) heart failure; I48.91 Unspecified atrial fibrillation; I11.0 Hypertensive heart disease with heart failure; G62.9 Polyneuropathy, unspecified; I25.10 Atherosclerotic heart disease of native coronary artery without angina pectoris; E66.3 Overweight; E78.5 Hyperlipidemia, unspecified; J45.909 Unspecified asthma, uncomplicated; T45.515A Adverse effect of anticoagulants, initial encounter; Z88.0 Allergy status to penicillin; Z95.2 Presence of prosthetic heart valve; Z88.2 Allergy status to sulfonamides; Z85.3 Personal history of malignant neoplasm of breast; Z88.1 Allergy status to other antibiotic agents; Z79.01 Long term (current) use of anticoagulants; Z82.49 Family history of ischemic heart disease and other diseases of the circulatory system; Z68.27 Body mass index [BMI] 27.0-27.9, adult
CPT/HCPCS: 36415; 71020; 80048; 80053; 81003; 81015; 83605; 83690; 83735; 85025; 85610; 86140; 86850; 86900; 86901; 86922; 86927; 87077; 87086; 87641; 93005; 94640; 94760; A9270-GY; J2250; J2405; P9017; P9040

== ENCOUNTER 2017-08-10 09:14 | Day surgery (SDC) | payer MEDICARE ==
[~2017-08-10 09:14] MED LIST: Buffered Lidocaine 0.9% SYRIN* 5 ML/SYR SYRINGE INTRADERM ONE; Sodium Citrate/Citric Acid* 15 ML UDC PO ONE
[2017-08-10] MEDS ORDERED: Buffered Lidocaine 0.9% SYRIN* 5 ML/SYR SYRINGE ONE (09:27)
[2017-08-10] MEDS ORDERED: Sodium Citrate/Citric Acid* 15 ML UDC ONE (09:27)
[2017-08-10] MEDS ORDERED: Propofol* 10 MG/ML 20 ML BTL IV PUSH ONE (10:23)
[2017-08-10] MEDS ORDERED: Lidocaine 2% PF * 5 ML VIAL ONE (10:23)
[2017-08-10] MEDS ORDERED: fentaNYL* 50 MCG/ML 2 ML VIAL (100 MCG VIAL) ONE (10:25)
[2017-08-10] MEDS ORDERED: oxyCODONE/Acetamin 5/325 MG* TAB PO PRN (10:54)
--- NOTE | 2017-08-10 11:59 | OP ---
DATE OF OPERATION: 08/10/2017. DATE OF : 1940. SURGEON: Dr. Kanu Domínguez. ANESTHESIOLOGIST: Dr. Ajay Lerma. ANESTHESIA: General endotracheal anesthesia. PRE-OP DIAGNOSIS: Postmenopausal bleeding, thickened endometrium on ultrasound. POST-OP DIAGNOSIS: ____same, pathology pending OPERATIVE PROCEDURE: ___Dilation, Hysteroscopy, Curettage ESTIMATED BLOOD LOSS: Minimal, less than 20 cc. FINDINGS: Midline small uterus, atrophic-appearing endometrium throughout, atrophic change to the vagina, cervix and perineum, the tissue is easily fissured. Both tubal ostia were visualized. COMPLICATIONS: None. COUNTS: Sponge, lap and needle count were correct times two. CONDITION: The patient was brought to the recovery room awake and in stable condition. DESCRIPTION OF PROCEDURE: The patient was brought to the operating room. When general anesthesia was found to be adequate, the patient was prepped and draped in the usual sterile fashion in the dorsal lithotomy position. Exam under anesthesia was performed with the above findings noted. Small axial uterus, no adnexal masses palpable. A narrow weighted speculum was placed in the vagina. The anterior lip and the cervix was grasp with a single tooth tenaculum and the cervix was gently and easily dilated with the graduated Hewitt dilators. The hysteroscope was introduced. The endometrium appeared atrophic throughout. Both tubal ostia were visualized. The hysteroscope was removed. Curettage was performed. The single tooth tenaculum was removed from the cervix. Excellent hemostasis was noted. All instruments were removed from the vaginal and the patient was brought to the recovery room awake and in stable condition. [id number]/[facility] #: [id number] [facility]
[2017-08-10 12:02] VITALS: BP 143/67
== END 2017-08-10 11:49 | disposition home or self-care (01) ==
LOC: OR 09:14
PROVIDERS: ATTEND Obstetrics & Gynecology
DX: N95.0 Postmenopausal bleeding (principal); D62 Acute posthemorrhagic anemia; I48.0 Paroxysmal atrial fibrillation; I35.9 Nonrheumatic aortic valve disorder, unspecified; I25.810 Atherosclerosis of coronary artery bypass graft(s) without angina pectoris; I50.9 Heart failure, unspecified; Z95.0 Presence of cardiac pacemaker; G25.81 Restless legs syndrome; J45.909 Unspecified asthma, uncomplicated; Z95.2 Presence of prosthetic heart valve; I44.2 Atrioventricular block, complete
CPT/HCPCS: 88305; A9270-GY; J2704; J3010

== ENCOUNTER 2018-09-24 08:10 | Emergency (ER) | payer MEDICARE ==
[2018-09-24 08:32] VITALS: BP 130/70
--- NOTE | 2018-09-24 08:40 | UC ---
General HPI - HPI Summary HPI Summary: 1. "uti". frequent, urgewnt burning with urination since last pm. hx same. no fever or abdominal pain. 2. cough, congestion and brownish sputum since last pm. hx asthma, using inhaler which helps. no cp. - History of Current Complaint Chief Complaint: UCRespiratory Stated Complaint: URINARY, COUGH Time Seen by Provider: 09/24/18 08:25 Hx Obtained From: Patient Hx Last Menstrual Period: n/a Onset/Duration: Gradual Onset Timing: Constant Pain Intensity: 0 Associated Signs & Symptoms: Positive: Cough, Dysuria, SOB. Negative: Abdominal Pain, Chest Pain, Fever, Wheezing - Allergy/Home Medications Allergies/Adverse Reactions: Allergies Allergy/AdvReac Type Severity Reaction Status Date / Time erythromycin base Allergy See Comment Verified 09/24/18 08:27 Penicillins Allergy Unknown Verified 09/24/18 08:27 Reaction Details Sulfa (Sulfonamide Allergy Rash Verified 09/24/18 08:27 Antibiotics) Home Medications: Home Medications Calcium Carbonate [Calcium/C/D] 1 chw PO DAILY 09/24/18 [History Confirmed 09/24] Nitroglycerin TAB 0.4 MG* 0.4 mg SL Q5M PRN 09/24/18 [History Confirmed 09/24/18 ] Omeprazole CAP* [Prilosec CAP* 20 MG] 20 mg PO DAILY 09/24/18 [History Confirmed 09/24/18] PMH/Surg Hx/FS Hx/Imm Hx - Additional Past Medical History Additional PMH: uti's Cardiovascular History: Cardiac Disease, Hypertension Respiratory History: Asthma GI/ History: Gastroesophageal Reflux - Surgical History Surgical History: Yes Surgery Procedure, Year, and Place: MITRAL AND AORTIC valve replacement/single bypass;. *MITRAL VALVE MOSAIC PORCINE CONDITIONAL AT 3T (CODI UNDER 4.0W/KG ; 2500 GAUSS/CM OR LESS) AORTIC VALVE DUVALL MAGNA MITRAL EASE PERICARDIAL 1.5T ONLY (SPATIAL GRADIENT 720 GAUSS/CM)*. L breast lumpectomy 2011, tonsilectomy, CARDIAC CATH 07/2013, CYSTOSCOPY, CATARACT SX; - Family History Known Family History: Positive: Non-Contributory - Social History Alcohol Use: None Alcohol Amount: ONCE A WEEK Substance Use Type: None Smoking Status (MU): Never Smoked Tobacco - Immunization History Most Recent Influenza Vaccination: 2016 Most Recent Tetanus Shot: 2008 Most Recent Pneumonia Vaccination: 2008 Vaccination Up to Date: Yes Review of Systems All Other Systems Reviewed And Are Negative: Yes Constitutional: Negative: Fever Skin: Positive: Negative Eyes: Positive: Negative ENT: Positive: Negative Respiratory: Positive: Shortness Of Breath, Cough Cardiovascular: Negative: Chest Pain Gastrointestinal: Negative: Abdominal Pain, Vomiting, Diarrhea, Nausea Genitourinary: Positive: Dysuria, Frequency, Urgency Motor: Positive: Negative Neurovascular: Positive: Negative Musculoskeletal: Positive: Negative Neurological: Positive: Negative Psychological: Positive: Negative Physical Exam Triage Information Reviewed: Yes Appearance: Well-Appearing Vital Signs: Initial Vital Signs Temp 98.9 F 09/24/18 08:25 Pulse 88 09/24/18 08:25 Resp 15 09/24/18 08:25 BP 130/70 09/24/18 08:25 Pulse Ox 98 09/24/18 08:25 Vital Signs Reviewed: Yes Eyes: Positive: Conjunctiva Clear ENT: Positive: Pharynx normal, TMs normal. Negative: Nasal congestion, Nasal drainage Neck: Positive: Supple, Nontender, No Lymphadenopathy Respiratory: Positive: Lungs clear, No respiratory distress, Decreased breath sounds. Negative: Crackles, Rhonchi, Wheezing Cardiovascular: Positive: RRR, No Murmur Abdomen Description: Positive: Nontender, No Organomegaly, Soft. Negative: CVA Tenderness (R), CVA Tenderness (L), Distended, Guarding Bowel Sounds: Positive: Present Musculoskeletal: Positive: ROM Intact Neurological: Positive: Alert Psychological: Positive: Age Appropriate Behavior Skin Exam: Normal Diagnostics - Laboratory Diagnostic Studies Completed/Ordered: u/a=protein, blood, leukocytes with culture pending. Course/Dx - Differential Dx - Multi-Symptom Differential Diagnoses: Other - no concern for pneumonia or acute abdomen or pyelonephritis. - Diagnoses Provider Diagnosis: Asthma, UTI (urinary tract infection) Discharge - Sign-Out/Discharge Documenting (check all that apply): Patient Departure All imaging exams completed and their final reports reviewed: No Studies - Discharge Plan Condition: Stable Disposition: HOME Prescriptions: predniSONE [Prednisone 20 MG TAB] 40 mg PO DAILY 5 Days #10 tablet Sulfamethox/Trimethoprim DS* [Bactrim DS 800/160 TAB*] 1 tab PO BID 3 Days #6 tab Patient Education Materials: Asthma (ED), Urinary Tract Infection in Women (ED) Referrals: Keyona Figueroa MD [Primary Care Provider] - 5 Days Additional Instructions: The antibiotic may raise your warfarin level thus close follow up with primary care is needed. use rescue inhaler 2 puffs every 6 hours. - Billing Disposition and Condition Condition: STABLE Disposition: Home - Attestation Statements Provider Attestation: I was available for consult. This patient was seen by the BETHANIE. The patient was not presented to, seen by, or examined by me. -Rafal
--- NOTE | 2018-09-26 07:16 | UC ---
- Progress Note Progress Note: + E. Coli in urine on cephalexin await sensitivity no change [facility] 09/26 Course/Dx - Diagnoses Provider Diagnoses: Asthma, UTI (urinary tract infection) Discharge - Sign-Out/Discharge Documenting (check all that apply): Post-Discharge Follow Up All imaging exams completed and their final reports reviewed: No Studies - Discharge Plan Condition: Stable Disposition: HOME Prescriptions: Cephalexin CAP* [Keflex CAP*] 500 mg PO BID 7 Days #14 cap predniSONE [Prednisone 20 MG TAB] 40 mg PO DAILY 5 Days #10 tablet Patient Education Materials: Asthma (ED), Urinary Tract Infection in Women (ED) Referrals: Keyona Figueroa MD [Primary Care Provider] - 5 Days Additional Instructions: The antibiotic may raise your warfarin level thus close follow up with primary care is needed. use rescue inhaler 2 puffs every 6 hours. - Billing Disposition and Condition Condition: STABLE Disposition: Home
== END 2018-09-24 09:11 | disposition home or self-care (01) ==
LOC: UCCORT 08:10
DX: J45.909 Unspecified asthma, uncomplicated (principal); N39.0 Urinary tract infection, site not specified; B96.20 Unspecified Escherichia coli [E. coli] as the cause of diseases classified elsewhere; Z16.29 Resistance to other single specified antibiotic; Z88.0 Allergy status to penicillin; Z88.1 Allergy status to other antibiotic agents; Z88.2 Allergy status to sulfonamides; I10 Essential (primary) hypertension; Z95.2 Presence of prosthetic heart valve
CPT/HCPCS: 81003; 87077; 87086; 87186; 99212; G0463

== ENCOUNTER 2018-12-30 09:40 | Emergency (ER) | payer MEDICARE ==
--- OUTSIDE RECORDS SUMMARY | 2018-12-30 09:54 | XMS REPORT | Continuity of Care Document ---
:1940 External Reference #:[id number] Author Name Jennifer Rdoriguez PA-C Address [address] [place] [address] Care Team Providers Name Role Phone Keyona Figueroa M.D. Primary Care Physician Unavailable Payers Date Identification Numbers Payment Provider Subscriber Policy Number: [id number] [place] [employer] [employer]VS Catie Melgar PayID: [id number] [address] [place] [address] Policy Number: [id number] [facility] Catie Melgar PayID: [id number] [address] [place] [address] Advance Directives Description No Information Available Problems Date Description Provider Status Onset: 06/29/2012 Sensorineural hearing loss Ben Henry MD Active Family History Date Family Member(s) Observation Comments Father Heart Disease Social History Type Date Description Comments Sex Unknown Occupation Retired Tobacco Use Start: Unknown Never Smoked Cigarettes Tobacco Use Start: Unknown End: Former Cigarette Smoker Unknown Tobacco Use Start: Unknown End: current.no Unknown Tobacco Use Start: Unknown End: current.no Unknown Smokeless Tobacco current.no ETOH Use Currently rarely consumes alcohol Recreational Drug Use denies drug use Tobacco Use Start: Unknown Patient has never smoked Smoking Status Reviewed: 02/15/18 Patient has never smoked Allergies, Adverse Reactions, Alerts Date Description Reaction Status Severity Comments 02/06/2007 Penicillin Active 02/06/2007 Sulfa Active 07/01/2009 Erythromycin Active 06/28/2012 Cipro Active Medications Medication Date Status Form Strength Qnty SIG Indications Ordering Provider Fluticasone 05/11/ Active Suspension 50mcg/Act 16gm 2 sprays Ben Propionate 2016 each richard Aleman MD daily Vitamin D / Active 2000Iu daily Miri Moses BAILEY Multivitamins / Active daily Miri 0000 Moses BAILEY Warfarin Sodium / Active Tablets 4mg as Miri, 0000 directed Moses BAILEY Calcium 600+D / Active Tablets 600-400mg Miri High Potency 0000 -Unit Moses BAILEY Atorvastatin / Active Tablets 10mg 1 by Miri Calcium 0000 mouth Moses BAILEY every at bedtime Lisinopril / Active Tablets 5mg 1 by Miri 0000 mouth Moses BAILEY every day Nitroglycerin / Active as needed Miri Moses BAILEY Flovent HFA / Active Figueroa, 0000 Keyona M.D. Furosemide / Active Tablets 20mg 1 by Henry, 0000 mouth Keyona every day M.D. Vitamin B6 / Active Unknown 0000 Metoprolol / Active Tablets 25mg Take One Unknown Tartrate 0000 Tablet By Mouth Twice A Day Omeprazole / Active Capsules DR 20mg Take One Unknown 0000 Capsule By Mouth Every Day Ventolin HFA / Active Aerosol 108(90Bas prn Unknown 0000 e) mcg/Act Qnasl 02/01/ Hx Aerosol 80mcg/Act 1mont 2 sprays Ben 2016 - h into each DevanEloina Elaine 02/15/ nostril 2017 once daily Nasonex 01/31/ Hx Suspension 50mcg/Act 17gm 2 sprays Ben 2017 - both Jojo Henry 02/15/ nostrils 2017 once a day Ciprofloxacin 12/08/ Hx Solution 0.3% 5ml 4 drops Ben HCL 2015 - to right Jojo Henry 01/31/ ear twice 2016 a day for 7 days Atrovent Nasal 07/23/ Hx NS 0.06% 1Mont 2 puffs Ben [place] 2013 - h each Jojo Henry 02/15/ nostril 2017 twice daily Ipratropium 07/23/ Hx Solution 0.06% 1bott 2 sprays Ben [place] 2013 - le each Jojo Henry 01/31/ nostril 2016 twice a day Atrovent 10/25/ Hx Solution 0.06% 1unit 2 sprays Ben 2012 - s in each Jojo Henry, 07/03/ richard BAILEY 2013 twice a day as needed Singulair 01/09/ Hx Tablets 10mg 30tab 1 PO qd 477.8 Ben 2007 - s Jojo Henry, 07/01/ 2008 Clarithromycin 08/01/ Hx Tablets 500mg 28tab 1 tablet Ben 2006 - s by mouth Jojo Henry, 10/11/ twice a 2007 day for 14 days Prednisone 08/01/ Hx Tablets 10mg 30tab 4 Tabs PO Ben 2006 - s Every Day Jojo Henry, 10/11/ X3 D, 2007 Then 3 Tabs PO Every Day X 3D, Then 2 Tab PO Daily X3D, Then 1 Tab PO Daily X3D Ciprofloxacin 06/22/ Hx Tablets 500mg 28tab 1 tablet 473.0 Ben HCL 2006 - s twice a Jojo eHnry, 08/13/ day for 2006 14 days Nasonex 04/06/ Hx Suspension 50mcg/Act 1mont 2 sprays 471.8 Ben 2006 - h each Jojo Henry, 07/01/ richard BAILEY 2008 daily Singulair 04/06/ Hx Tablets 10mg 30tab 1 PO qd 471.8 Ben 2006 - s Jojo Henry, 01/07/ 2007 Levaquin 02/20/ Hx Tablets 500mg 14tab 1 Tablet Ben 2006 - s By Mouth Jojo Henry 04/06/ Daily 2006 Until Finished Cipro 02/15/ Hx Tablets 500mg 20tab Take One Ben 2006 - s Tablet By Jojo Henry 04/06/ Mouth 2006 Twice A Day For 10 Days Lyzine 02/14/ Hx Unknown 2006 - 2008 Sinus Medicine 02/05/ Hx Unknown 2006 - 2006 Multivitamins 02/05/ Hx Unknown 2006 - 2008 Calcium Acetate 02/05/ Hx Unknown 2006 - 2008 Fosamax 02/05/ Hx Unknown 2006 - 2008 Amitriptyline 02/05/ Hx Unknown 2006 - 2007 Enablex 02/05/ Hx Unknown 2006 - 2008 Flovent 14/ Hx Unknown 2006 - 2008 Nasonex 02/05/ Hx Suspension 50McG 17gm 2 puff Unknown Intranasal [place] 2006 - Each 04/06/ Nostril 2007 Daily Chlor-Trimeton /00/ Hx Unknown 2008 Alendronate /00/ Hx Unknown Sodium 2011 Calcium /00/ Hx Unknown 2013 Hysine /00/ Hx Unknown 2011 Nasonex /00/ Hx Unknown 2011 Flovent HFA /00/ Hx Unknown 2011 Fiber Tabs / Hx Unknown 2011 Levofloxacin / Hx Unknown 2012 Chemotherapy 00/ Hx Unknown 2012 Gabapentin // Hx Unknown 2013 Vitamin B6 // Hx Unknown 2013 Evista / Hx Unknown 2013 Flonase / Hx Suspension 50mcg/Act 1unit 2 puffs Miri 0000 - s both side Moses BAILEY 12/08/ once per 2015 day Cetirizine HCL / Hx Tablets 10mg 90tab 1 by Miri 0000 - s mouth Moses BAILEY every day 2015 Furosemide / Hx Tablets 20mg 1 by Miri 0000 - mouth Moses BAILEY every day 2015 Ferrous / Hx Tablets 324(38Fe) 1 by Miri Gluconate 0000 - mg mouth Moses BAILEY 12/08/ twice a 2015 day Alendronate / Hx Tablets 35mg 1 po Miri Sodium 0000 - weekly Moses BAILEY 2016 Metoprolol 00/ Hx Tablets ER 25mg bid Miri, Succinate ER 0000 - 24HR Moses BAILEY 2018 Vitamin C / Hx Chewtabs 500mg Tina Chery MD 2016 Aspirin Low Dose / Hx Tablets 81mg 1 by Miri 0000 - milagro Lopes MD every day 2018 Immunizations Description No Information Available Vital Signs Date Vital Result Comment 12/04/2018 11:19am Weight 165.00 lb Weight 74.844 kg Height 65.98 inches 5'5.98" Height in cm's 167.6 cm BMI (Body Mass Index) 26.6 kg/m2 02/15/2018 1:23pm Weight 162.00 lb Weight 73.483 kg Height 65.98 inches 5'5.98" Height in cm's 167.6 cm BMI (Body Mass Index) 26.2 kg/m2 12/09/2015 1:57pm BP Systolic 136 mmHg BP Diastolic 67 mmHg Heart Rate 75 /min Respiratory Rate 17 /min Weight 160.00 lb Weight 72.576 kg Height 65.98 inches 5'5.98" Height in cm's 167.6 cm BMI (Body Mass Index) 25.8 kg/m2 07/03/2014 1:27pm Respiratory Rate 17 /min Weight 160.00 lb Weight 72.576 kg Height 65.98 inches 5'5.98" Height in cm's 167.6 cm BMI (Body Mass Index) 25.8 kg/m2 04/19/2013 11:18am BP Systolic 133 mmHg BP Diastolic 93 mmHg Heart Rate 76 /min Respiratory Rate 16 /min Weight 160.00 lb Weight 72.576 kg Height 65.98 inches 5'5.98" Height in cm's 167.6 cm BMI (Body Mass Index) 25.8 kg/m2 10/25/2012 10:16am BP Systolic 126 mmHg BP Diastolic 70 mmHg Heart Rate 89 /min Respiratory Rate 16 /min Weight 150.00 lb Weight 68.040 kg Height 65.98 inches 5'5.98" Height in cm's 167.6 cm BMI (Body Mass Index) 24.2 kg/m2 06/28/2012 2:21pm BP Systolic 129 mmHg BP Diastolic 68 mmHg Heart Rate 89 /min Respiratory Rate 16 /min Weight 150.00 lb Weight 68.040 kg Height 65.98 inches 5'6" Height in cm's 167.6 cm BMI (Body Mass Index) 24.2 kg/m2 06/26/2008 9:47am BP Systolic 144 mmHg BP Diastolic 80 mmHg Heart Rate 74 /min Respiratory Rate 16 /min 02/21/2008 1:30pm BP Systolic 128 mmHg BP Diastolic 68 mmHg Heart Rate 81 /min Respiratory Rate 16 /min 01/10/2008 9:10am BP Systolic 131 mmHg BP Diastolic 90 mmHg Heart Rate 86 /min Respiratory Rate 15 /min 10/11/2007 9:23am BP Systolic 136 mmHg BP Diastolic 74 mmHg Heart Rate 75 /min Respiratory Rate 14 /min 09/13/2007 9:46am BP Systolic 147 mmHg BP Diastolic 94 mmHg Heart Rate 83 /min Respiratory Rate 14 /min 02/15/2007 2:57pm BP Systolic 124 mmHg BP Diastolic 72 mmHg Heart Rate 90 /min Respiratory Rate 16 /min Results Description No Information Available Procedures Date Code Description Status 12/04/2018 14207 Removal Wax Impaction Completed 01/31/2017 93588 Tympanometry Completed 01/31/2017 76154 Comprehensive Audiogram Completed 07/03/2014 94016 Tympanometry Completed 07/03/2014 56728 Comprehensive Audiogram Completed 04/09/2013 11732 Tympanometry Completed 04/09/2013 31011 Comprehensive Audiogram Completed 06/28/2012 55515 Tympanometry Completed 06/28/2012 49764 Comprehensive Audiogram Completed 02/04/2008 78085 Prick Test Completed 02/04/2008 26340 Prick Test Completed 08/13/2007 29336 Nasal Endoscopy, Diagnostic Completed 06/22/2007 27963 Fiberoptic Laryngoscopy Completed 02/15/2007 12950 Removal Wax Impaction Completed 02/15/2007 41833 Nasal Endoscopy, Diagnostic Completed Encounters Type Date Location Provider Dx Diagnosis Office Visit 02/15/2018 [place],After Ben Uribe 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 MD Elaine hear loss,uni,r ear w rstrcd hear cntra side H72.91 Unspecified perforation of tympanic membrane, right ear Office Visit 01/31/2017 [place],After Ben Uribe H72.91 Unspecified 10:00a 09/25/07 MD Elaine perforation of tympanic membrane, right ear H90.A31 Mix cndct/snrl hear loss,uni,r ear w rstrcd hear cntra side J30.2 Other seasonal allergic rhinitis Office Visit 12/09/2015 [place],After Ben Uribe H72.91 Unspecified 1:45p 09/25/07 MD Elaine perforation of tympanic membrane, right ear R05 Cough J30.0 Vasomotor rhinitis Office 07/03/2014 [place],After Ben Uribe 384.20 Perforation Of Tympanic Visit 1:30p 09/25/07 MD Elaine Membrane/Unspecified 389.10 Hearing Loss, Sensorineural/Unspecified 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.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, Conductive/Middle Ear 472.0 Rhinitis, Chronic Office 04/19/2013 [place],After Ben Uribe 384.20 Perforation Of Tympanic Visit 11:00a 09/25/07 MD Elaine Membrane/Unspecified Office 10/25/2012 [place],After Ben Uribe 384.20 Perforation Of Tympanic Visit 10:15a 09/25/07 MD Elaine Membrane/Unspecified Office 06/28/2012 [place],After Ben Uribe 384.20 Perforation Of Tympanic Visit 1:30p 09/25/07 MD Elaine Membrane/Unspecified 389.10 Hearing Loss, Sensorineural/Unspecified 389.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, Conductive/Middle Ear Office Visit 07/01/2009 10:00a [place],After 09/25/07 Ben Uribe 477.8 RhinitisElaine MD Perennial, Allergy Office Visit 06/26/2008 9:45a [place],After 09/25/07 Ben Uribe 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Elaine MD Seasonal -Allergic Due To Pollen 473.0 Sinusitis, Chronic Maxillary 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, Chronic Ethmoidal 473.1 Sinusitis, Chronic Frontal Office Visit 02/21/2008 1:30p [place],After 09/25/07 [place], 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 , 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 477.8 Rhinitis, Perennial, Allergy Office Visit 01/10/2008 9:15a [place],After 09/25/07 Ben Uribe 473.0 Sinusitis, MD Elaine Chronic Maxillary 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, Chronic Ethmoidal 473.1 Sinusitis, Chronic Frontal 477.8 Rhinitis, Perennial, Allergy Office Visit 10/11/2007 9:30a [place],After 09/25/07 Ben Uribe 473.0 SinusitisElaine MD Chronic Maxillary 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, Chronic Ethmoidal 473.1 Sinusitis, Chronic Frontal Office Visit 09/13/2007 9:45a [place],After 09/25/07 Ben Uribe 473.0 Sinusitis, MD Elaine Chronic Maxillary 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, Chronic Ethmoidal Office Visit 07/20/2007 11:30a [place],After 09/25/07 Ben Uribe 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, MD Elaine Chronic Ethmoidal 473.0 Sinusitis, Chronic Maxillary Office Visit 06/22/2007 11:15a [place],After 09/25/07 Ben Uribe 473.0 Sinusitis, MD Elaine Chronic Maxillary 784.49 Hoarseness /Other Office Visit 04/06/2007 11:00a [place],After Ben Uribe 471.8 Polyps, 09/25/07 MD Elaine Nasal/Sinus 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
--- OUTSIDE RECORDS SUMMARY | 2018-12-30 09:54 | XMS REPORT | Continuity of Care Document ---
:1940 External Reference #:[id number] Author Name Ben Henry MD Address [address] [place] [address] Care Team Providers Name Role Phone Keyona Figueroa M.D. Primary Care Physician Unavailable Payers Date Identification Numbers Payment Provider Subscriber Policy Number: [id number] [place] [employer] [employer] Catie Melgar PayID: [id number] [address] [place] [address] [address]: [id number] [facility] Catie Melgar PayID: [id number] [address] [place] [address] Advance Directives Description No Information Available Problems [...] Patient has never smoked Smoking Status Reviewed: 12/28/18 Patient has never smoked Allergies, Adverse Reactions, Alerts Date Description Reaction Status Severity Comments 02/06/2007 Penicillin Active 02/06/2007 Sulfa Active 07/01/2009 Erythromycin Active Medications Medication Date Status Form Strength Qnty SIG Indications Ordering Provider Clotrimazole 12/28/ Active Mavis 10mg 50uni 1 by Ben 2018 ts mouth 5 Jojo Henry, times a MD day for 10 days Fluticasone 02/02/ Active Suspension 50mcg/Act 16gm 2 sprays Ben Propionate 2016 each richard Aleman MD daily Vitamin D / Active 2000Iu daily Miri 0000 Moses BAILEY Multivitamins / Active daily Miri 0000 Moses BAILEY Warfarin Sodium / Active Tablets 4mg as Miri 0000 directed Moses BAILEY Calcium 600+D / Active Tablets 600-400mg Miri, High Potency 0000 -Unit Moses BAILEY Atorvastatin / Active Tablets 10mg 1 by Miri Calcium 0000 mouth Moses BAILEY every at bedtime Lisinopril / Active Tablets 5mg 1 by Miri 0000 mouth Moses BAILEY every day Nitroglycerin / Active as needed Miri 0000 Moses BAILEY Flovent HFA / Active Figueroa, 0000 Keyona M.D. Furosemide / Active Tablets 20mg 1 by Henry 0000 mouth Keyona every day M.D. Vitamin [...] sprays Ben 2016 - h into each Jojo Henry 02/15/ nostril 2017 once daily Nasonex 01/31/ Hx Suspension 50mcg/Act 17gm 2 sprays Ben 2016 - both Jojo Henry 02/15/ nostrils 2017 once a day Ciprofloxacin 12/08/ Hx Solution 0.3% 5ml 4 drops Ben HCL 2015 - to right Jojo Henry 01/31/ ear twice 2016 a day for 7 days Atrovent Nasal 07/23/ Hx NS 0.06% 1Mont 2 puffs Ben [place] 2013 - h each Jojo Henry 02/15/ nostril 2017 twice daily Ipratropium 07/23/ Hx Solution 0.06% 1bott 2 sprays Ben [place] 2014 - le each Jojo Henry, 01/31/ nostril 2016 twice a day Atrovent 10/25/ Hx Solution 0.06% 1unit 2 sprays Ben 2012 - s in each Jojo Henry, 07/03/ nostril 2013 twice a day as needed Singulair 01/09/ Hx Tablets 10mg 30tab 1 PO qd 477.8 Ben 2007 - s Jojo Henry, 07/01/ 2008 Clarithromycin 08/01/ Hx Tablets 500mg 28tab 1 tablet Ben 2006 - s by mouth Jojo Henry, 10/11/ twice a 2007 day for 14 days Prednisone 08/01/ Hx Tablets 10mg 30tab 4 Tabs PO Ben 2007 - s Every Day Jojo Henry 10/11/ X3 D, 2007 Then 3 Tabs PO Every Day X 3D, Then 2 Tab PO Daily X3D, Then 1 Tab PO Daily X3D Ciprofloxacin 06/22/ Hx Tablets 500mg 28tab 1 tablet 473.0 Ben HCL 2006 - s twice a Jojo Henry, 08/13/ day for 2006 14 days Nasonex 04/06/ Hx Suspension 50mcg/Act 1mont 2 sprays 471.8 Ben 2006 - h each Jojo Henry, 07/01/ nostril 2008 daily Singulair 04/06/ Hx Tablets 10mg 30tab 1 PO qd 471.8 Ben 2006 - s Jojo Henry 01/07/ 2007 Levaquin 02/20/ Hx Tablets 500mg 14tab 1 Tablet Ben 2006 - s By Mouth Jojo Henry, 04/06/ Daily 2006 Until Finished Cipro 02/15/ Hx Tablets 500mg 20tab Take One Ben 2006 - s Tablet By Jjoo Henry 04/06/ Mouth 2006 Twice A Day For 10 Days Lyzine 02/14/ Hx Unknown 2006 - 2008 Sinus Medicine 02/05/ Hx Unknown 2006 - 2006 Multivitamins 02/05/ Hx Unknown 2006 - 2008 Calcium Acetate 02/05/ Hx Unknown 2006 - 2008 Fosamax 02/05/ Hx Unknown 2006 - 2008 Amitriptyline 02/05/ Hx Unknown 2006 - 2007 Enablex 02/05/ Hx Unknown 2006 Flovent 02/05/ Hx Unknown 2006 Nasonex 02/05/ Hx Suspension 50McG 17gm 2 puff Unknown Intranasal [place] 2006 - Each 04/06/ Nostril 2007 Daily Chlor-Trimeton // Hx Unknown 2008 Alendronate / Hx Unknown Sodium 2011 Calcium /00/ Hx Unknown 2013 Hysine /00/ Hx Unknown 2011 Nasonex /00/ Hx Unknown 2011 Flovent HFA / Hx Unknown 2011 Fiber Tabs // Hx Unknown 2011 Levofloxacin /00/ Hx Unknown 2012 Chemotherapy // Hx Unknown 2012 Gabapentin // Hx Unknown 2013 Vitamin B6 /00/ Hx Unknown 2013 Evista /00/ Hx Unknown 2013 Flonase / Hx Suspension 50mcg/Act 1unit 2 puffs Miri 0000 - s both side Moses BAILEY 12/08/ once per 2015 day Cetirizine HCL / Hx Tablets 10mg 90tab 1 by Miri 0000 - s mouth Moses BAILEY every day 2015 Furosemide / Hx Tablets 20mg 1 by Miri 0000 - milagro Lopes MD every day 2016 Ferrous / Hx Tablets 324(38Fe) 1 by Miri Gluconate 0000 - mg mouth Moses BAILEY 12/08/ twice a 2015 day Alendronate / Hx Tablets 35mg 1 po Miri Sodium 0000 - weekly Moses BAILEY 2016 Metoprolol / Hx Tablets ER 25mg bid Miri, Succinate ER 0000 - 24HR Moses BAILEY 2018 Vitamin C / Hx Chewtabs 500mg Tina Chery - Moses BAILEY 2016 Aspirin Low Dose / Hx Tablets 81mg 1 by Tina Chery MD day 2018 Immunizations Description No Information Available Vital Signs Date Vital Result Comment 12/28/2018 11:03am Weight 165.00 lb Weight 74.844 kg Height 65.98 inches 5'5.98" Height in cm's 167.6 cm BMI (Body Mass Index) 26.6 kg/m2 12/04/2018 11:19am Weight 165.00 lb Weight 74.844 [...] Information Available Procedures Date Code Description Status 12/28/2018 54443 Fiberoptic Laryngoscopy Completed 12/04/2018 57155 Removal Wax Impaction Completed 01/31/2017 11925 Tympanometry Completed 01/31/2017 25087 Comprehensive Audiogram Completed 07/03/2014 16814 Tympanometry Completed 07/03/2014 82427 Comprehensive Audiogram Completed 04/09/2013 81617 Tympanometry Completed 04/09/2013 37025 Comprehensive Audiogram Completed 06/28/2012 60323 Tympanometry Completed 06/28/2012 18476 Comprehensive Audiogram Completed 02/04/2008 28107 Prick Test Completed 02/04/2008 51522 Prick Test Completed 08/13/2007 20892 Nasal Endoscopy, Diagnostic Completed 06/22/2007 04263 Fiberoptic Laryngoscopy Completed 02/15/2007 90391 Removal Wax Impaction Completed 02/15/2007 37395 Nasal Endoscopy, Diagnostic Completed Encounters Type Date Location Provider Dx Diagnosis Office Visit 12/28/2018 [place],After Ben Uribe B37.0 Candidal stomatitis 11:00a 09/25/07 MD Elaine R49.0 Dysphonia H72.91 Unspecified perforation of tympanic membrane, right ear Office Visit 02/15/2018 [place],After Ben Uribe 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, Conductive/Middle Ear 472.0 Rhinitis, Chronic Office 04/19/2013 [place],After Ben Uribe 384.20 Perforation Of Tympanic Visit 11:00a 09/25/07 MD Elaine Membrane/Unspecified Office 10/25/2012 [place],After Ben Uribe 384.20 Perforation Of Tympanic Visit 10:15a 09/25/07 MD Elaine Membrane/Unspecified Office 06/28/2012 [place],After Ben Uribe 384.20 Perforation Of Tympanic Visit 1:30p 09/25/07 MD Elaine Membrane/Unspecified 389.10 Hearing Loss, Sensorineural/Unspecified 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.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, Conductive/Middle Ear Office Visit 07/01/2009 10:00a [place],After 09/25/07 Ben Uribe 477.8 RhinitisElaine MD Perennial, Allergy Office Visit 06/26/2008 9:45a [place],After 09/25/07 Ben Uribe 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Elaine MD Seasonal -Allergic Due To Pollen 473.0 Sinusitis, Chronic Maxillary 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, Chronic Ethmoidal 473.1 Sinusitis, Chronic Frontal Office Visit 02/21/2008 1:30p [place],After 09/25/07 Alejandro Sebastian7.0 Rhinitis , 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 477.8 Rhinitis, Perennial, Allergy Office Visit 01/10/2008 9:15a [place],After 09/25/07 Ben Uribe 473.0 Sinusitis, MD Elaine Chronic Maxillary 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, Chronic Ethmoidal 473.1 Sinusitis, Chronic Frontal 477.8 Rhinitis, Perennial, Allergy Office Visit 10/11/2007 9:30a [place],After 09/25/07 Ben Uribe 473.0 Sinusitis, MD Elaine Chronic Maxillary 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, Chronic Ethmoidal 473.1 Sinusitis, Chronic Frontal Office Visit 09/13/2007 9:45a [place],After 09/25/07 Ben Uribe 473.0 Sinusitis, MD Elaine Chronic Maxillary 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, Chronic Ethmoidal Office Visit 07/20/2007 11:30a [place],After 09/25/07 Ben Uribe 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, MD Elaine Chronic Ethmoidal 473.0 Sinusitis, Chronic Maxillary Office Visit 06/22/2007 11:15a [place],After 09/25/07 Ben Uribe 473.0 Sinusitis, MD Elaine Chronic Maxillary 784.49 Hoarseness /Other Office Visit 04/06/2007 11:00a [place],After Ben Uribe 471.8 Polyps, 09/25/07 MD Elaine Nasal/Sinus 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
[2018-12-30 11:30] VITALS: BP 125/46
--- NOTE | 2018-12-30 12:04 | UC ---
Respiratory Complaint HPI - HPI Summary HPI Summary: cough for a week. pt out of breath with walking. Pt states cough is productive. afebrile. she has a lot of fatigue. - History of Current Complaint Chief Complaint: UCRespiratory Stated Complaint: COUGH,CONGESTION Time Seen by Provider: 12/30/18 11:52 Hx Obtained From: Patient Hx Last Menstrual Period: n/a ?: No Onset/Duration: Sudden Onset, Lasting Days - 7 Timing: Constant Severity Initially: Mild Severity Currently: Mild Pain Intensity: 0 Character: Cough: Productive Aggravating Factors: Exertion, Deep Breaths, Recumbent Position Alleviating Factors: Nothing Associated Signs And Symptoms: Positive: Dyspnea, Edema - Allergies/Home Medications Allergies/Adverse Reactions: Allergies Allergy/AdvReac Type Severity Reaction Status Date / Time erythromycin base Allergy See Comment Verified 12/30/18 11:30 Penicillins Allergy Unknown Verified 12/30/18 11:30 Reaction Details Sulfa (Sulfonamide Allergy Rash Verified 12/30/18 11:30 Antibiotics) Home Medications: Home Medications Fluticasone NASAL SPRAY 50MCG* [Flonase NASAL SPRAY 50MCG*] 1 spray INH DAILY PRN 12/30/18 [History Confirmed 12/30/18] PMH/Surg Hx/FS Hx/Imm Hx Previously Healthy: Yes - Surgical History Surgical History: Yes Surgery Procedure, Year, and Place: MITRAL AND AORTIC valve replacement/single bypass;. *MITRAL VALVE MOSAIC PORCINE CONDITIONAL AT 3T (CODI UNDER 4.0W/KG ; 2500 GAUSS/CM OR LESS) AORTIC VALVE DUVALL MAGNA MITRAL EASE PERICARDIAL 1.5T ONLY (SPATIAL GRADIENT 720 GAUSS/CM)*. L breast lumpectomy 2011, tonsilectomy, CARDIAC CATH 07/2013, CYSTOSCOPY, CATARACT SX; - Family History Known Family History: Positive: Non-Contributory - Social History Alcohol Use: None Alcohol Amount: ONCE A WEEK Substance Use Type: None Smoking Status (MU): Never Smoked Tobacco - Immunization History Most Recent Influenza Vaccination: 2015 Most Recent Tetanus Shot: 2007 Most Recent Pneumonia Vaccination: 2008 Vaccination Up to Date: Yes Review of Systems All Other Systems Reviewed And Are Negative: Yes Constitutional: Positive: Fatigue Skin: Positive: Negative Eyes: Positive: Negative ENT: Positive: Negative Respiratory: Positive: Shortness Of Breath, Cough Cardiovascular: Positive: Negative Gastrointestinal: Positive: Negative Genitourinary: Positive: Negative Motor: Positive: Negative Neurovascular: Positive: Negative Musculoskeletal: Positive: Negative Neurological: Positive: Negative Psychological: Positive: Negative Is Patient Immunocompromised?: No Physical Exam Triage Information Reviewed: Yes Appearance: Well-Appearing, Well-Nourished, Ill-Appearing Vital Signs: Initial Vital Signs Temp 97.7 F 12/30/18 11:25 Pulse 88 12/30/18 11:25 Resp 16 12/30/18 11:25 BP 125/46 12/30/18 11:25 Pulse Ox 99 12/30/18 11:25 Vital Signs Reviewed: Yes Eye Exam: Normal ENT: Positive: Pharynx normal, TMs normal Dental Exam: Normal Neck exam: Normal Neck: Positive: Supple, Nontender, No Lymphadenopathy Respiratory: Positive: Chest non-tender, Lungs clear, Normal breath sounds, No respiratory distress - mild, Crackles, Rhonchi, Wheezing, Inspiration Cardiovascular Exam: Normal Cardiovascular: Positive: RRR, No Murmur, Pulses Normal Abdomen Description: Positive: Nontender, No Organomegaly, Soft Musculoskeletal Exam: Normal Neurological Exam: Normal Psychological Exam: Normal Skin Exam: Normal Respiratory Course/Dx - Course Course Of Treatment: hx obtained, exam performed ,meds reviewed, chest xray obtained. - Differential Dx/Diagnosis Differential Diagnosis/HQI/PQRI: Bronchitis, CHF, Pulmonary Edema, Pulmonary Embolism Provider Diagnosis: Pleural effusion, SOB (shortness of breath) Discharge - Sign-Out/Discharge Documenting (check all that apply): Patient Departure All imaging exams completed and their final reports reviewed: No Studies - Discharge Plan Condition: Stable Disposition: HOME Prescriptions: DOXYcycline CAP(*) [DOXYcycline 100MG CAP(*)] 100 mg PO BID #14 cap Patient Education Materials: Pleural Effusion (ED) Referrals: Keyona Figueroa MD [Primary Care Provider] - Additional Instructions: 1. Take 40 mg of lasix today. 2. Restart your lasix daily as prescribed. 20 mg in the morning. 3. Restrict your fluid intake for the next 3 days, to 1000 ml daily 4. Take the anitbiotic as prescribed. 5. I recommend follow up at your doctors office this week, call tomorrow your xray report is attached for your doctors viewing 6. If you develop any severe respiratory difficulty or increased shortness of breath, please follow up in ER. - Billing Disposition and Condition Condition: STABLE Disposition: Home - Attestation Statements Provider Attestation: Per institutional requirements, I have reviewed the chart, however, I was not consulted specifically or made aware of this patient by the midlevel provider. I did not personally evaluate, interact with , or disposition this patient.
[2018-12-30] MEDS ORDERED: Furosemide TAB* 40 MG PO ONE ×2 (12:46→12:48)
--- NOTE | 2018-12-31 15:04 | UC ---
- Progress Note Progress Note: Radiologist reading of chest x-ray from December 30, 2018 comes back as small pleural effusions and/or dependent consolidation. The provider report from the same date there is no interpretation of the chest x -ray however the patient did diagnose the patient with pleural effusions and is treating her for those so therefore there is no discrepancy. Course/Dx - Diagnoses Provider Diagnoses: Pleural effusion, SOB (shortness of breath) Discharge - Sign-Out/Discharge Documenting (check all that apply): Patient Departure All imaging exams completed and their final reports reviewed: Yes - Discharge Plan Condition: Stable Disposition: HOME Prescriptions: DOXYcycline CAP(*) [DOXYcycline 100MG CAP(*)] 100 mg PO BID #14 cap Patient Education Materials: Pleural Effusion (ED) Referrals: Keyona Figueroa MD [Primary Care Provider] - Additional Instructions: 1. Take 40 mg of lasix today. 2. Restart your lasix daily as prescribed. 20 mg in the morning. 3. Restrict your fluid intake for the next 3 days, to 1000 ml daily 4. Take the anitbiotic as prescribed. 5. I recommend follow up at your doctors office this week, call tomorrow your xray report is attached for your doctors viewing 6. If you develop any severe respiratory difficulty or increased shortness of breath, please follow up in ER. - Billing Disposition and Condition Condition: STABLE Disposition: Home
== END 2018-12-30 13:02 | disposition home or self-care (01) ==
LOC: UCCORT 09:40
DX: R06.02 Shortness of breath (principal); J90 Pleural effusion, not elsewhere classified; Z88.2 Allergy status to sulfonamides; Z88.1 Allergy status to other antibiotic agents; Z88.0 Allergy status to penicillin
CPT/HCPCS: 71046; 99212; A9270-GY; G0463

== ENCOUNTER 2019-07-21 09:18 | Emergency (ER) | payer MEDICARE ==
--- NOTE | 2019-07-21 09:24 | UC ---
Complaint Female HPI - HPI Summary HPI Summary: 78 year old female present with one day complaint of urinary frequency and burning with urination. Denies fever, abdominal pain nor flank pain. - History Of Current Complaint Stated Complaint: URINARY COMPLAINT Time Seen by Provider: 07/21/19 09:23 Hx Obtained From: Patient Hx Last Menstrual Period: n/a Onset/Duration: Sudden Onset, Lasting Days - one - Allergies/Home Medications Allergies/Adverse Reactions: Allergies Allergy/AdvReac Type Severity Reaction Status Date / Time erythromycin base Allergy See Comment Verified 07/21/19 09:33 Penicillins Allergy Unknown Verified 07/21/19 09:33 Reaction Details Sulfa (Sulfonamide Allergy Rash Verified 07/21/19 09:33 Antibiotics) Home Medications: Home Medications Cetirizine HCl [All Day Allergy] 10 mg PO DAILY 07/21/19 [History Confirmed ] Potassium Chloride [Klor-Con] 20 meq PO DAILY 07/21/19 [History Confirmed ] Tolterodine Tartrate 1 mg PO DAILY 07/21/19 [History Confirmed 07/21/19] PMH/Surg Hx/FS Hx/Imm Hx Previously Healthy: Yes Cardiovascular History: Cardiac Disease, Hypertension, Other - valve replacement GI/ History: Gastroesophageal Reflux - Surgical History Surgical History: Yes Surgery Procedure, Year, and Place: MITRAL AND AORTIC valve replacement/single bypass;. *MITRAL VALVE MOSAIC PORCINE CONDITIONAL AT 3T (CODI UNDER 4.0W/KG ; 2500 GAUSS/CM OR LESS) AORTIC VALVE DUVALL MAGNA MITRAL EASE PERICARDIAL 1.5T ONLY (SPATIAL GRADIENT 720 GAUSS/CM)*. L breast lumpectomy 2011, tonsilectomy, CARDIAC CATH 07/2013, CYSTOSCOPY, CATARACT SX; - Family History Known Family History: Positive: Non-Contributory - Social History Alcohol Use: None Alcohol Amount: ONCE A WEEK Substance Use Type: None Smoking Status (MU): Never Smoked Tobacco - Immunization History Most Recent Influenza Vaccination: 2016 Most Recent Tetanus Shot: 2007 Most Recent Pneumonia Vaccination: 2007 Vaccination Up to Date: Yes Review of Systems All Other Systems Reviewed And Are Negative: Yes Constitutional: Positive: Negative Skin: Positive: Negative Eyes: Positive: Negative ENT: Positive: Negative Respiratory: Positive: Negative Cardiovascular: Positive: Negative Gastrointestinal: Positive: Negative Genitourinary: Positive: Dysuria, Frequency, Urgency. Negative: Hematuria Motor: Positive: Negative Neurovascular: Positive: Negative Musculoskeletal: Positive: Negative Neurological: Positive: Negative Psychological: Positive: Negative Is Patient Immunocompromised?: No Physical Exam Triage Information Reviewed: Yes Appearance: Well-Appearing Eye Exam: Normal ENT: Positive: Normal ENT inspection Neck: Positive: Supple, Nontender, No Lymphadenopathy Respiratory: Positive: Lungs clear, Other: - left chest tenderness to palpation from prior breast surgery. Negative: Crackles, Rhonchi, Wheezing Cardiovascular: Positive: RRR, Murmur:Sys:Grade _?_/ - III Abdomen Description: Positive: Nontender, Soft Musculoskeletal: Positive: Strength Intact, ROM Intact Neurological: Positive: Alert Psychological Exam: Normal Skin Exam: Normal Complaint Female Dx - Differential Dx/Diagnosis Provider Diagnosis: Urinary tract infection Discharge ED - Sign-Out/Discharge Documenting (check all that apply): Patient Departure All imaging exams completed and their final reports reviewed: No Studies - Discharge Plan Condition: Stable Disposition: HOME Prescriptions: Nitrofurantoin Monohyd/M-Cryst [Macrobid 100 mg Capsule] 100 mg PO BID 10 Days # 20 cap Patient Education Materials: Urinary Tract Infection in Women (ED) Referrals: Keyona Figueroa MD [Primary Care Provider] - Additional Instructions: Drink plenty of water. Notify your Primary Care Physician you were place on a an antibiotic for your urinary tract infection and continue your weekly warfarin monitoring. If your symptoms persist or worsen, follow-up with your physician. - Billing Disposition and Condition Condition: STABLE Disposition: Home
--- OUTSIDE RECORDS SUMMARY | 2019-07-21 09:24 | XMS REPORT | Continuity of Care Document ---
:1940 External Reference #:[id number] Author Name Keyona Figueroa M.D. (transmitted by agent of provider Cassi Rachel) Address [address], [place] [address] Care Team Providers Name Role Phone Keyona Figueroa MD - Internal Care Team Information Sustainability Project Coordinator Medicine Problems Active Problems Provider Date Pure hypercholesterolemia Moses Chery M.D. Onset: 06/14/2011 Aortic valve disorder Aquilino Fuentes M.D. Onset: 07/24/2013 Heart murmur Aquilino Fuentes M.D. Onset: 07/24/2013 Mitral valve disorder Aquilino Fuentes M.D. Onset: 08/14/2013 Coronary arteriosclerosis Aquilino Fuentes M.D. Onset: 08/14/2013 Osteopenia Keyona Figueroa M.D. 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 Fuentes Heart valve replacement Keyona Figueroa M.D. Onset: 04/10/2017 Cardiac pacemaker in situ Keyona Figueroa M.D. Onset: 04/10/2017 Complete atrioventricular block Keyona Figueroa M.D. Onset: 04/10/2017 Postmenopausal bleeding Keyona Fiugeroa M.D. Onset: 04/10/2017 Acute gastric ulcer with hemorrhage but Keyona Figueroa M.D. Onset: 2016 without obstruction Note: Aspirin related Dcd Social History Type Date Description Comments Sex Unknown Tobacco Use Start: Unknown Never Smoked Cigarettes ETOH Use Denies alcohol use Tobacco Use Start: Unknown Patient has never smoked Recreational Drug Use Never Used Drugs Smoking Status Reviewed: 06/12/19 Patient has never smoked Exercise Type/Frequency walks 2-3x/week Patient states no longer goes for walks. Walks up and down stairs, mows lawn occasionally.Document: 06/15/17 - Pulmonology Follow Up Exercise Type/Frequency Exercises rarely Allergies, Adverse Reactions, Alerts Active Allergies Reaction Severity Comments Date PCN Rash 11/05/2007 E-Mycin GI Upset 11/05/2007 Sulfa Rash 11/05/2007 Medications Active Medications SIG Qnty Indications Ordering Date Provider Tolterodine 1 by mouth every day 90tabs Keyona Figueroa, 04/19/2019 Tartrate M.DEloina 1mg Tablets Fosamax once a week 14tabs Keyona Figueroa, 04/08/2019 70mg M.D. Tablets Potassium Chloride 1 by mouth every day 90tabs Aquilino Durant 02/07/2019 [facility] Fuentes 20Meq Tablets ER Furosemide 1 tab once a day 90tabs Nahomy Estrada, 02/05/2019 20mg N.P. Tablets Flonase Allergy spray 1 spray in 16units J30.89 Keyona Figueroa, 11/19/2018 Relief each nostril daily M.DEloina 50mcg/Act Suspension Omeprazole 1 by mouth every day 30caps K29.00 Keyona Figueroa, 04/25/[address] Jaeger intramuscular x 1 1units Keyona Figueroa, 03/19/2018 50mcg then repeat in 4 M.D. Suspension Rec months scott Clindamycin HCL 4 capsule by mouth 6caps Aquilino Durant 05/31/2016 one hour prior to Barrett Fuentes 300mg Capsules dental procedures. Warfarin Sodium take 1 tab daily or 100tabs Keyona Figueroa, 05/09/2014 4mg as directed M.DEloina Tablets Atorvastatin 1 by mouth every day 90tabs Moses Uribe 02/19/2014 Ren Chery M.D. 10mg Tablets Flovent HFA inhale two puffs by 24gm Keyona Figueroa, 08/15/2013 mouth twice a day M.DEloina 110mcg/Act Aerosol Calcium W/Vitamin D 1 PO qd Unknown 600/400 Tablets Multi For Her 1 po qd 90tabs Unknown Tablets Vitamin D 1 by mouth every day 30caps Unknown 2000Unit Capsules Nitrostat one sl q5min up to 3 25tabs Aquilino D. 0.4mg doses as needed Alfredo MKoki Tablets Sub Metoprolol Tartrate 1 by mouth two times 180tabs Aquilino D. a day Brand, MKoki 25mg Tablets Ventolin HFA 2 puffs by mouth 54gm Sanjuanita Ndiaye, four times a day as 108(90Base) mcg/Act needed Aerosol Pepcid take one Unknown 20mg Tablets capsule/tablet daily by mouth as needed History Medications Solifenacin once a day 30tabs Keyona Figueroa, 04/15/2019 - Succinate M.D. 04/19/2019 5mg Tablets Oxybutynin Chloride once a day 30tabs Keyona Figueroa, 04/03/2019 - M.D. 04/15/2019 5mg Tablets Nystatin 11/21/18 report not 120ml Amairani Hilton, 01/01/2019 - taking. 4 N.P. 01/11/2019 [id number]/ML milliliters four Suspension times a day, swish and swallow for 10 days Immunizations CPT Code Status Date Vaccine Lot # [id number] Given 06/12/2019 Pneumonia Vaccine [id number] 97669 Given 06/12/2019 Tdap - Tetanus/Diptheria/Acellular Pertussis [id number] 68088 Given 07/10/2018 Fluzone High Dose [id number] 42068 Given 06/30/2017 Influenza Virus Vaccine, Quadrivalent, Split, [id number] Preservative Free 44712 Given 06/27/2016 Influenza Virus Vaccine, Quadrivalent, Split, [id number] Preservative Free 01798 Given 07/02/2015 Influenza Virus Vaccine, Quadrivalent, Split, [id number] Preservative Free 72866 Given 01/19/2015 Pneumococcal Conjugate Vaccine 13 Valent For [id number] Intramuscular Use Q2037 Given 01/15/2015 Fluvirin Im 3Yrs And Older 95768 Given 06/23/2014 Influenza Virus Vaccine, Quadrivalent, Split, [id number] Preservative Free 00390 Given 07/01/2013 Flu Vaccine Split Virus Preservative Free For [id number] Indiv 3Yr Older Q2038 Given 06/10/2011 Fluzone Vaccine 63463 Given 06/25/2010 Zoster (Zostavax) 41119 Given 08/07/2008 Influenza Virus 3Yrs & Over 26206 Given 08/07/2008 Influenza Virus 3Yrs & Over 29187 Given 06/05/2008 Pneumonia Vaccine [id number] 90181 Given 06/05/2008 Tetanus And Diptheria (Td) For Adult Use Preservative Free 38786 Given 06/05/2008 Tetanus And Diptheria (Td) For Adult Use [id number] Preservative Free 83607 Given 08/15/2007 Influenza Virus 3Yrs & Over 00190 Given 08/15/2007 Influenza Virus 3Yrs & Over 54935 Given 08/15/2007 Influenza Virus 3Yrs & Over 45681 Vital Signs Date Vital Result Comment 06/12/2019 1:01pm Height 65 inches 5'5" Weight 155.00 lb Heart Rate 66 /min BP Systolic Sitting 129 mmHg BP Diastolic Sitting 66 mmHg O2 % BldC Oximetry 97 % BMI (Body Mass Index) 25.8 kg/m2 04/01/2019 1:11pm Height 65 inches 5'5" Weight 154.50 lb Heart Rate 68 /min BP Systolic Sitting 126 mmHg Lue reg cuff BP Diastolic Sitting 70 mmHg Lue reg cuff O2 % BldC Oximetry 99 % BMI (Body Mass Index) 25.7 kg/m2 Results Test Date Facility Test Result H/L Range Note Protime W/ Inr 06/10/2019 Other Rendering Inr 1.7 Protime W/ Inr 06/04/2019 Other Rendering Inr 2.3 Protime W/ Inr 05/28/2019 Other Rendering Inr 2.3 Protime W/ Inr 04/01/2019 Other Rendering Inr 2.4 Basic Metabolic 02/25/2019 [facility] Sodium 139 mmol/L Normal 135-[address] [place] [address] [phone] Potassium 4.5 mmol/L Normal 3.5-5.0 Chloride 105 mmol/L Normal 101-111 Co2 Carbon Dioxide 25 mmol/L Normal 22-32 Anion Gap 9 mmol/L Normal 2-11 Glucose 92 mg/dL Normal 70-100 Blood Urea Nitrogen 23 mg/dL Normal 6-24 Calcium 9.5 mg/dL Normal 8.6-10.3 Creatinine 1.11 mg/dL High 0.51-0.95 BUN/Creatinine Ratio 20.7 High 8-20 Egfr Non- 47.4 >60 Egfr 57.4 >60 1 Protime W/ Inr 02/19/2019 Other Rendering Inr 2.0 Basic Metabolic 02/05/2019 [facility] Sodium 139 mmol/L Normal 135-145 [address] [place] [address] [phone] Potassium 3.6 mmol/L Normal 3.5-5.0 Chloride 103 mmol/L Normal 101-111 Co2 Carbon Dioxide 27 mmol/L Normal 22-32 Anion Gap 9 mmol/L Normal 2-11 Glucose 94 mg/dL Normal 70-100 Blood Urea Nitrogen 18 mg/dL Normal 6-24 Creatinine 0.99 mg/dL High 0.51-0.95 BUN/Creatinine Ratio 18.2 Normal 8-20 Calcium 9.6 mg/dL Normal 8.6-10.3 Egfr Non- 54.1 >60 Egfr 65.5 >60 2 Laboratory test 02/05/2019 [facility] Magnesium 1.9 mg/dL Normal 1.9-2.7 [address] [place] [address] [phone] Protime W/ Inr 01/29/2019 Other Rendering Inr 2.4 Protime W/ Inr 01/21/2019 Other Rendering Inr 3.1 Protime W/ Inr 01/14/2019 Other Rendering Inr 1.9 Protime W/ Inr 01/07/2019 Other Rendering Inr 2.5 Protime W/ Inr 12/31/2018 Other Rendering Inr 4.6 Protime W/ Inr 12/24/2018 Other Rendering Inr 2.3 Protime W/ Inr 12/17/2018 Other Rendering Inr 2.3 1 Because ethnic data is not always readily available, this report includes an eGFR for both -Americans and non- Americans. The National Kidney Disease Education Program (NKDEP) does not endorse the use of the MDRD equation for patients that are not between the ages of 18 and 70, are , have extremes of body size, muscle mass, or nutritional status, or are non- or non-. According to the National Kidney Foundation, irrespective of diagnosis, the stage of the disease is based on the level of kidney function: Stage Description GFR(mL/min/1.73 m(2)) 1 Kidney damage with normal or decreased GFR 90 2 Kidney damage with mild decrease in GFR 60-89 3 Moderate decrease in GFR 30-59 4 Severe decrease in GFR 15-29 5 Kidney failure <15 (or dialysis) 2 Because ethnic data is not always readily available, this report includes an eGFR for both -Americans and non- Americans. The National Kidney Disease Education Program (NKDEP) does not endorse the use of the MDRD equation for patients that are not between the ages of 18 and 70, are , have extremes of body size, muscle mass, or nutritional status, or are non- or non-. According to the National Kidney Foundation, irrespective of diagnosis, the stage of the disease is based on the level of kidney function: Stage Description GFR(mL/min/1.73 m(2)) 1 Kidney damage with normal or decreased GFR 90 2 Kidney damage with mild decrease in GFR 60-89 3 Moderate decrease in GFR 30-59 4 Severe decrease in GFR 15-29 5 Kidney failure <15 (or dialysis) Procedures Date Code Description Status 01/23/2019 [id number] Mammogram Completed 01/22/2019 83669 ECHO Transthoracic, Real-Time 2D With Doppler And Completed Color Flow 01/22/2019 94612 ECHO Transthoracic, Real-Time 2D With Doppler And Completed Color Flow 01/16/2019 16613 Interrogation Device Eval In Person W/DR Completed Analysis,Single,Dual,Mul 03/21/2018 [id number] Bone Mineral Density Test Completed 01/22/2018 [id number] Mammogram Completed 01/16/2017 [id number] Mammogram Completed 01/13/2016 [id number] Mammogram Completed 12/14/2015 [id number] Diabetic Retinal Eye Exam Completed 01/06/2015 [id number] Mammogram Completed 12/29/2014 [id number] Bone Mineral Density Test Completed 11/21/2014 [id number] Diabetic Retinal Eye Exam Completed 02/25/2014 [id number] Bone Mineral Density Test Completed 01/09/2014 [id number] Mammogram Completed 08/29/2013 [id number] Mammogram Completed 01/23/2012 [id number] Mammogram Completed 08/05/2008 [id number] Colonoscopy Completed Medical Devices Description No Information Available Encounters Type Date Location Provider Dx Diagnosis Office Visit 04/01/2019 [facility] Internal Keyona Figueroa, 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 R06.02 Shortness of Of [facility] Sean, N.P. breath Z95.2 Presence of prosthetic heart valve I25.10 Athscl heart disease of [place] coronary artery w/o ang pctrs R60.9 Edema, unspecified I50.32 Chronic diastolic (congestive) heart failure Office Visit 01/16/2019 11:45a [facility] Aquilino Durant R06.02 Shortness of Of [facility] Barrett Fuentes breath I25.10 Athscl heart disease of [place] coronary artery w/o ang pctrs Z95.2 Presence of prosthetic heart valve Office Visit 12/31/2018 11:40a [facility] Internal Amairani Hilton, R10.2 Pel[facility] and [facility] perineal pain R06.02 Shortness of breath Assessments Date Code Description Provider 06/12/2019 Z00.00 Encounter for general adult medical Keyona Figueroa M.D. examination without abnormal findings 06/12/2019 J30.2 Other seasonal allergic rhinitis Keyona Figueroa M.D. 06/12/2019 Z23 Encounter for immunization Keyona Figueroa M.D. 04/01/2019 Z79.01 detention (current) use of anticoagulants Keyona Figueroa M.D. 04/01/2019 Z87.311 Personal history of (healed) other Keyona Figueroa M.D. pathological fracture 02/05/2019 R06.02 Shortness of breath Nahomy Estrada, N.P. 02/05/2019 Z95.2 Presence of prosthetic heart valve Nahomy Estrada, N.P. 02/05/2019 I25.10 Atherosclerotic heart disease of [place] Nahomy Estrada, N.P. coronary artery with 02/05/2019 R60.9 Edema, unspecified Nahomy Estrada, N.P. 02/05/2019 I50.32 Chronic diastolic (congestive) heart Nahomy Estrada, N.P. failure 01/22/2019 R06.02 Shortness of breath Traveling ECHO 1 01/22/2019 Z95.2 Presence of prosthetic heart valve Aquilino Fuentes M.D. 01/22/2019 Z95.2 Presence of prosthetic heart valve Traveling ECHO 1 01/16/2019 R06.02 Shortness of breath Aquilino Fuentes M.D. 01/16/2019 I25.10 Atherosclerotic heart disease of [place] Aquilino Fuentes M.D. coronary artery with 01/16/2019 Z95.2 Presence of prosthetic heart valve Aquilino Fuentes M.D. 12/31/2018 R10.2 Pelvic and perineal pain Amairani Hilton N.PEloina 12/31/2018 R06.02 Shortness of breath Amairani Hilton N.P. Plan of Treatment Future Appointment(s):12/11/2019 11:50 am - Keyona Figueroa M.D. at [facility]/09/2019 11:45 am - Aquilino Fuentes M.D. at [facility]06/12/2019 - Keyona Figueroa M.D.Z00.00 Encounter for general adult medical examination without abnormal findingsComments:GENERAL PHYSICAL EXAM:You are up to date with your vaccinations. Flu vaccination in June I recommend regular screening mammography Your last colonoscopy was in A follow up colonoscopy is due in .I think that it is a good idea to have an Advance Directive on file here.We reviewed healthy lifestyle practices, specifically, strategies to maintain a durable ideal body weight and an aerobic exercise routine.Follow up:6 months for general check upJ30.2 Other seasonal allergic rhinitisComments:try antihistamine ( cetririzine ) once a day to help with your nasal [id number] Encounter for immunization Functional Status Description No Information Available Mental Status Description No Information Available Referrals Description No Information Available
--- OUTSIDE RECORDS SUMMARY | 2019-07-21 09:24 | XMS REPORT | Continuity of Care Document ---
:1940 External Reference #:[id number] Author Name Sanjuanita Ndiaye MD (transmitted by agent of provider Nilsa Plaza) Address [address], [address] [place] [id number] Care Team Providers Name Role Phone Keyona Figueroa MD - Internal Care Team Information Agent [facility] Medicine Problems Active Problems Provider Date Pure [...] Figueroa M.D. Onset: 04/10/2017 Postmenopausal bleeding Keyona Figueroa M.D. Onset: 04/10/2017 Acute gastric ulcer with hemorrhage but Keyona Figueroa M.D. Onset: 2016 without obstruction Note: Aspirin related Dcd Social History Type Date Description Comments Sex Unknown Tobacco Use Start: Unknown Never Smoked Cigarettes ETOH Use Denies alcohol use Tobacco Use Start: Unknown Patient has never smoked Recreational Drug Use Never Used Drugs Smoking Status Reviewed: 07/09/19 Patient has never smoked Exercise Type/Frequency walks [...] a week 14tabs Keyona Figueroa, 04/08/2019 70mg M.DEloina Tablets Potassium Chloride 1 by mouth every [...] Keyona Figueroa, 08/15/2013 mouth twice a day M.D. 110mcg/Act Aerosol Sooth Eye Drops 2 drops in each Unknown everyday Cetirizine HCL 1 tab by mouth every Unknown day as needed Pepcid take one Unknown 20mg Tablets capsule/tablet daily by mouth as needed Ventolin HFA 2 puffs by mouth 54gm Sanjuanita Ndiaye, four times a day as 108(90Base) mcg/Act needed Aerosol Metoprolol Tartrate 1 by mouth two times 180tabs Aquilino D. a day Brand, M.DEloina 25mg Tablets Nitrostat one sl q5min up to 3 25tabs Aquilino D. 0.4mg doses as needed Brand, M.Bhargav Tablets Sub Vitamin D 1 by mouth every day 30caps Unknown 2000Unit Capsules Multi For Her 1 po qd 90tabs Unknown Tablets Calcium W/Vitamin D 1 PO qd Unknown 600/400 Tablets History Medications Solifenacin Succinate once a day 30tabs Keyona Figueroa, 04/15/2019 - 5mg M.D. 04/19/2019 Tablets Oxybutynin Chloride once a day 30tabs Keyona Figueroa, 04/03/2019 - 5mg M.D. 04/15/2019 Tablets Immunizations CPT Code Status Date Vaccine Lot # [id number] Given 06/12/2019 Tdap - Tetanus/Diptheria/Acellular Pertussis [id number] Given 07/10/2018 Fluzone High Dose [id number] 34486 Given 06/30/2017 Influenza Virus Vaccine, Quadrivalent, Split, [id number] Preservative Free 64743 Given 06/27/2016 Influenza Virus Vaccine, Quadrivalent, Split, [id number] Preservative Free 39453 Given 07/02/2015 Influenza Virus Vaccine, Quadrivalent, Split, [id number] Preservative Free 54386 Given 01/19/2015 Pneumococcal Conjugate Vaccine 13 Valent For [id number] Intramuscular Use Q2037 Given 01/15/2015 Fluvirin Im 3Yrs And Older 02089 Given 06/23/2014 Influenza Virus Vaccine, Quadrivalent, Split, [id number] Preservative Free 75047 Given 07/01/2013 Flu Vaccine Split Virus Preservative Free For [id number] Indiv 3Yr Older Q2038 Given 06/10/2011 Fluzone Vaccine 61566 Given 06/25/2010 Zoster (Zostavax) 71816 Given 08/07/2008 Influenza Virus 3Yrs & Over 08528 Given 08/07/2008 Influenza Virus 3Yrs & Over 67696 Given 06/05/2008 Pneumonia Vaccine [id number] 02783 Given 06/05/2008 Tetanus And Diptheria (Td) For Adult Use Preservative Free 30506 Given 06/05/2008 Tetanus And Diptheria (Td) For Adult Use [id number] Preservative Free 92183 Given 08/15/2007 Influenza Virus 3Yrs & Over 41845 Given 08/15/2007 Influenza Virus 3Yrs & Over 24519 Given 08/15/2007 Influenza Virus 3Yrs & Over 71809 Vital Signs Date Vital Result Comment 07/09/2019 11:45am Height 65 inches 5'5" Weight 155.00 lb Heart Rate 66 /min BP Systolic Sitting 140 mmHg Rue regular cuff BP Diastolic Sitting 72 mmHg Rue regular cuff Respiratory Rate 12 /min O2 % BldC Oximetry 95 % BMI (Body Mass Index) 25.8 kg/m2 06/12/2019 1:01pm Height 65 inches 5'5" Weight 155.00 lb Heart Rate 66 /min BP Systolic Sitting 129 mmHg BP Diastolic Sitting 66 mmHg O2 % BldC Oximetry 97 % BMI (Body Mass Index) 25.8 kg/m2 Results Test Date Facility Test Result H/L Range Note Protime W/ Inr 07/08/2019 [facility] In[facility] 2.3 Protime W/ Inr 06/24/2019 [facility] Inr 2.2 Protime W/ Inr 06/17/2019 Other [facility]endering Inr 2.3 Protime W/ Inr 06/10/2019 [facility] Inr 1.7 Protime W/ Inr 06/04/2019 Other [facility]endering Inr 2.3 Protime W/ Inr 05/28/2019 Other Rendering Inr 2.3 Protime W/ Inr 04/01/2019 Other Rendering Inr 2.4 Basic Metabolic 02/25/2019 [facility] Sodium 139 mmol/L Normal 135-[address] [place] [address] [phone] Potassium 4.5 mmol/L Normal 3.5-5.0 Chloride 105 [...] W/ Inr 02/19/2019 [facility] Inr 2.0 Laboratory test 02/05/2019 [facility] Magnesium 1.9 mg/dL Normal 1.9-2.7 finding [address] [place] [address] [phone] Basic Metabolic 02/05/2019 [facility] Sodium 139 mmol/L Normal 135-145 Panel [address] [place] [address] [phone] Potassium 3.6 mmol/L Normal 3.5-5.0 Chloride 103 mmol/L Normal 101-111 Co2 Carbon Dioxide 27 mmol/L Normal 22-32 Anion Gap 9 mmol/L Normal 2-11 Glucose 94 mg/dL Normal 70-100 Blood Urea Nitrogen 18 mg/dL Normal 6-24 Creatinine 0.99 mg/dL High 0.51-0.95 BUN/Creatinine Ratio 18.2 Normal 8-20 Calcium 9.6 mg/dL Normal 8.6-10.3 Egfr Non- 54.1 >60 Egfr 65.5 >60 2 Protime W/ Inr 01/29/2019 [facility] Inr 2.4 Protime W/ Inr 01/21/2019 Other Rendering Inr 3.1 Protime W/ Inr 01/14/2019 Other Rendering Inr 1.9 1 Because ethnic data is not always [...] dialysis) Procedures Date Code Description Status 01/23/2019 [id number] Mammogram Completed 01/22/2019 40549 ECHO Transthoracic, Real-Time 2D With Doppler And Completed Color Flow 01/22/2019 90157 ECHO Transthoracic, Real-Time 2D With Doppler And Completed Color Flow 01/16/2019 99438 Interrogation Device Eval In Person W/DR Completed Analysis,Single,Dual,Mul 03/21/2018 [id number] Bone Mineral Density Test Completed 01/22/2018 [id number] Mammogram Completed 01/16/2017 [id number] Mammogram Completed 01/13/2016 [id number] Mammogram Completed 12/14/2015 [id number] Diabetic Retinal Eye Exam Completed 01/06/2015 [id number] Mammogram Completed 12/29/2014 [id number] Bone Mineral Density Test Completed 11/21/2014 [id number] Diabetic Retinal Eye Exam Completed 02/25/2014 [id number] Bone Mineral Density Test Completed 01/09/2014 [id number] Mammogram Completed 08/29/2013 [id number] Mammogram Completed 01/23/2012 [id number] Mammogram Completed 08/05/2008 [id number] Colonoscopy Completed Medical Devices Description No Information Available Encounters Type Date Location Provider Dx Diagnosis Office Visit 04/01/2019 [facility] Internal Keyona Figueroa, Z79.01 terminal gauger ( current) 1:00p Medicine - Malaika Hyde use of anticoagulants Z87.311 Personal history of (healed) other pathological fracture Office Visit 02/05/2019 11:00a [facility] Nahomy S. R06.02 Shortness of Of [facility] Foster, N.P. 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 examination without abnormal findings 06/12/2019 J30.2 Other seasonal allergic rhinitis Keyona Figueroa M.D. 06/12/2019 Z23 Encounter for immunization Keyona Figueroa M.D. 04/01/2019 Z79.01 terminal gauger (current) use of anticoagulants Keyona Figueroa M.D. 04/01/2019 Z87.311 Personal history of (healed) other Keyona Figueroa M.D. pathological fracture 02/05/2019 R06.02 Shortness of breath Nahomy Estrada, N.P. 02/05/2019 Z95.2 Presence of prosthetic heart valve Nahomy S. Sean, N.P. 02/05/2019 I25.10 Atherosclerotic heart disease of [place] Nahomy S. Sean, N.P. coronary artery with 02/05/2019 R60.9 Edema, unspecified Nahomy S. Foster, N.P. 02/05/2019 I50.32 Chronic diastolic (congestive) heart Nahomy S. Foster, N.P. failure 01/22/2019 R06.02 Shortness of breath Traveling ECHO 1 01/22/2019 Z95.2 Presence of prosthetic heart valve Aquilino Fuentes M.D. 01/22/2019 Z95.2 Presence of prosthetic heart valve Traveling ECHO 1 01/16/2019 R06.02 Shortness of breath Aquilino Fuentes M.D. 01/16/2019 I25.10 Atherosclerotic heart disease of [place] Aquilino Fuentes M.D. coronary artery with 01/16/2019 Z95.2 Presence of prosthetic heart valve Aquilino Fuentes M.D. Plan of Treatment Future Appointment(s):07/09/2020 1:45 pm - Sanjuanita Ndiaye MD at [facility]08/09/2019 11:30 am - Ica Pacer Schedule at [facility]12/11/2019 11:50 am - Keyona Figueroa M.D. at [facility] Internal Medicine - [facility]08/09/2019 11:45 am - Aquilino Fuentes M.D. at [facility]07/09/2019 - Sanjuanita Ndiaye MDJ45.20 Mild intermittent asthma , uncomplicatedFollow up:1 year , PFTs sjnuzK39.89 Other allergic rhinitisReferral:Poli Ruff MD, Allergy & Immunology Functional Status Description No Information Available Mental Status Description No Information Available Referrals Refer to Dr Reason for Referral Status Appt Date Poli Ruff MD Sent [address] [place] [address] [phone]
[2019-07-21 09:32] VITALS: BP 135/64
--- NOTE | 2019-07-23 07:07 | UC ---
- Progress Note Progress Note: urine- no growth, no change bryon 07/23/19 Course/Dx - Diagnoses Provider Diagnoses: Urinary tract infection Discharge ED - Sign-Out/Discharge Documenting (check all that apply): Post-Discharge Follow Up All imaging exams completed and their final reports reviewed: No Studies - Discharge Plan Condition: Stable Disposition: HOME Prescriptions: Nitrofurantoin Monohyd/M-Cryst [Macrobid 100 mg Capsule] 100 mg PO BID 10 Days # 20 cap Patient Education Materials: Urinary Tract Infection in Women (ED) Referrals: Keyona Figueroa MD [Primary Care Provider] - Additional Instructions: Drink plenty of water. Notify your Primary Care Physician you were place on a an antibiotic for your urinary tract infection and continue your weekly warfarin monitoring. If your symptoms persist or worsen, follow-up with your physician. - Billing Disposition and Condition Condition: STABLE Disposition: Home
== END 2019-07-21 09:53 | disposition home or self-care (01) ==
LOC: UCCORT 09:18
DX: N39.0 Urinary tract infection, site not specified (principal); I10 Essential (primary) hypertension; Z88.1 Allergy status to other antibiotic agents; Z88.0 Allergy status to penicillin; Z88.2 Allergy status to sulfonamides; Z95.2 Presence of prosthetic heart valve
CPT/HCPCS: 81003; 87086; 99212; G0463